=== PATIENT | female | born 1965 | race Caucasian/White ===

== ENCOUNTER 2020-09-20 11:44 | Emergency (ER) | payer SELFPAY ==
[~2020-09-20] VITALS: Ht 177.8 cm; Wt 100.4 kg
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
[2020-09-20] MEDS ORDERED: methylPREDNISolone 125 MG (Solu-MEDROL) VIAL IVP ONE (12:45)
[2020-09-20] MEDS ORDERED: PRED10TA22 PO (13:19)
[2020-09-20 13:20] VITALS: BP 126/67
== END 2020-09-20 13:20 | disposition home or self-care (01) ==
LOC: ER FS 11:47
DX: M06.9 Rheumatoid arthritis, unspecified (principal); E11.9 Type 2 diabetes mellitus without complications

== ENCOUNTER → 2021-08-19 | Outpatient (CLI) | payer MEDICARE ==
[~2021-08-19] MED LIST: PRED10TA22 PO
--- NOTE | 2021-08-19 14:53 | Diagnostic Imaging Report ---
INDICATION: CHRONIC PAIN IN RIGHT KNEE; RHEUMATOID ARTHRITIS FLARE COMPARISON: None. FINDINGS: 3 views of the right knee joint demonstrate no acute fracture or dislocation. No focal osseous lesions are seen. No significant joint effusion is seen. The surrounding soft tissue structures are unremarkable. There are no radiopaque foreign bodies. IMPRESSION: 1. No acute fractures or dislocations of the right knee joint. Dictated by: Dictated on workstation # [id number]
== END ==
LOC: RAD FS 14:33
PROVIDERS: ATTEND Nurse Practitioner Family
DX: M06.9 Rheumatoid arthritis, unspecified (principal)
CPT/HCPCS: 73562

== ENCOUNTER 2021-10-05 15:27 | Emergency (ER) | payer MEDICARE ==
[~2021-10-05] VITALS: Ht 177.8 cm; Wt 97.9 kg
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
[2021-10-05] MEDS ORDERED: CATHETER FLUSH 10 ML SYR IV PRN (16:15)
[2021-10-05] MEDS ORDERED: NS 100 ML (IVPB) BAG IV ONE (16:15)
[2021-10-05] MEDS ORDERED: HOLD METFORMIN - RECEIVED CONTRAST 20 ML VIAL IV SCH (16:15)
[2021-10-05] MEDS ORDERED: IOHEXOL 350 MG/ML 100 ML (OMNIPAQUE 350) VIAL IV ONE (16:15)
[2021-10-05 16:16] LABS: BASOPHILS # (AUTO) 0.1 10^3/uL (0.0-0.1); BASOPHILS % (AUTO) 0 % (0-10); EOSINOPHILS # (AUTO) 0.1 10^3/uL (0.0-0.3); EOSINOPHILS % (AUTO) 1 % (0-10); HEMATOCRIT 41 % (35-52); HEMOGLOBIN 13.8 g/dL (11.5-16.0); LYMPHOCYTES # (AUTO) 1.3 10^3/uL (1.0-4.0); LYMPHOCYTES % (AUTO) 9 % (12-44); MEAN CORPUSCULAR HEMOGLOBIN 30 pg (25-34); MEAN CORPUSCULAR HGB CONC 34 g/dL (32-36); MEAN CORPUSCULAR VOLUME 90 fL (80-99); MONOCYTES # (AUTO) 0.5 10^3/uL (0.0-1.0); MONOCYTES % (AUTO) 3 % (0-12); NEUTROPHILS # (AUTO) 12.9 10^3/uL (1.8-7.8); NEUTROPHILS % (AUTO) 87 % (42-75); PLATELET COUNT 165 10^3/uL (130-400); WHITE BLOOD COUNT 14.9 10^3/uL (4.3-11.0)
--- NOTE | 2021-10-05 16:42 | Diagnostic Imaging Report ---
INDICATION: Dizziness, shortness of breath, and abdominal pain. EXAMINATION: Chest from 10/05/2021. FINDINGS: Single-view chest. There may be mild atelectasis at the left lung base, much of this is likely technical, however the remaining lungs are clear. No pneumothorax. No effusions. Heart and pulmonary vasculature are normal. IMPRESSION: 1. Minimal left base atelectasis, otherwise negative chest. Dictated by: Dictated on workstation # [id number]
[2021-10-05 16:50] LABS: BILIRUBIN,URINE NEGATIVE (NEGATIVE); CLARITY,URINE CLOUDY; COLOR,URINE YELLOW; GLUCOSE, URINE (UA) NEGATIVE (NEGATIVE); KETONES,URINE NEGATIVE (NEGATIVE); LEUKOCYTE ESTERASE ,URINE 1+ (NEGATIVE); NITRITE,URINE NEGATIVE (NEGATIVE); PH,URINE 6.5 (5-9); PROTEIN,URINE 1+ (NEGATIVE)
[2021-10-05] MEDS ORDERED: morphine INJ 10 MG/ML 1ML (SYR OR VIAL) IVP STA ×2 (16:54→18:13)
[2021-10-05] MEDS ORDERED: NS IV 1000 ML 1,000 ML IV SCH ×2 (17:00→18:15)
[2021-10-05 17:02] LABS: ALANINE AMINOTRANSFERASE 21 U/L (0-55); ALKALINE PHOSPHATASE 140 U/L (40-136); BILIRUBIN,TOTAL 0.3 MG/DL (0.1-1.0); BUN/CREATININE RATIO 15; CALCIUM 9.3 MG/DL (8.5-10.1); CARBON DIOXIDE 25 MMOL/L (21-32); CHLORIDE 99 MMOL/L (98-107); CREATININE SERUM 0.74 MG/DL (0.60-1.30); GFR ESTIMATED 95; GLUCOSE 152 MG/DL (70-105); MAGNESIUM 1.6 MG/DL (1.6-2.4); POTASSIUM 4.2 MMOL/L (3.6-5.0); SODIUM 135 MMOL/L (135-145)
[2021-10-05 17:03] LABS: ALBUMIN 4.2 GM/DL (3.2-4.5); LIPASE 17 U/L (8-78); TOTAL PROTEIN 7.1 GM/DL (6.4-8.2)
--- NOTE | 2021-10-05 17:11 | Diagnostic Imaging Report ---
PROCEDURE: CT abdomen and pelvis with contrast. TECHNIQUE: Multiple contiguous axial images were obtained through the abdomen and pelvis after administration of intravenous contrast. Auto Exposure Controls were utilized during the CT exam to meet ALARA standards for radiation dose reduction. All CT scans use one or more of the following dose optimizing techniques: automated exposure control, MA and/or KvP adjustment based on patient size and exam type or iterative reconstruction. INDICATION: Abdominal pain and weakness. COMPARISON: No relevant comparison available. FINDINGS: The lung bases demonstrate no findings of pneumonia or edema. There is mild dependent atelectasis within the lower lobes. There is no pleural or pericardial effusion. The liver demonstrates no evidence of a focal intrahepatic abnormality. The patient is status post cholecystectomy. There is no abnormal biliary prominence. The pancreas is normal. The spleen is normal in size. There is no adrenal mass. The right kidney is nonobstructed and unremarkable. The left kidney demonstrates abnormal left perinephric fat stranding as well as some hypoenhancement. There is stranding demonstrated along the course of the left ureter. There is no radiodense stone evident within the ureter or within the bladder. The findings may reflect a recently passed stone or may be reflective of a urinary tract infection and pyelonephritis. The stomach is nondistended. There are no findings of small or large bowel dilation. There is no evidence of bowel obstruction. The appendix is normal. There are no findings of free air, free fluid, or abscess. There are no pathologically enlarged abdominal or pelvic lymph nodes. There are atherosclerotic calcifications within a normal-caliber aorta. There are multilevel degenerative changes present within the lumbar spine. There is an anterolisthesis of L4 on L5 and L5 on S1. There are vacuum discs at each level. There is no acute osseous abnormality. IMPRESSION: 1. Abnormal left perinephric fat stranding and stranding along the left ureter. There is no significant hydronephrosis. There is urothelial enhancement and hypoenhancement of the left kidney relative to the right. Features may reflect recently passed stone or urinary tract infection and pyelonephritis. 2. The right kidney is unremarkable. 3. No bowel obstruction or appendicitis. 4. No free air, free fluid, or abscess. 5. Prior cholecystectomy without abnormal biliary dilatation. 6. Lumbar degenerative disc disease and facet arthropathy. Dictated by: Dictated on workstation # [id number]
[2021-10-05 17:31] LABS: RBC,URINE 0-2 /HPF
[2021-10-05 17:32] LABS: BACTERIA,URINE LARGE /HPF; SQUAMOUS EPITHELIAL CELL,UR >50 /HPF; WBC,URINE >100 /HPF
[2021-10-05 17:36] LABS: AMPHETAMINE SCREEN, URINE NEGATIVE (NEGATIVE); BARBITURATE SCREEN URINE NEGATIVE (NEGATIVE); BENZODIAZEPINES SCREEN URINE NEGATIVE (NEGATIVE); CANNABINOID SCREEN, URINE POSITIVE (NEGATIVE); COCAINE SCREEN URINE NEGATIVE (NEGATIVE); METHADONE STAT NEGATIVE (NEGATIVE); OPIATE SCREEN URINE NEGATIVE (NEGATIVE); OXYCODONE STAT POSITIVE (NEGATIVE); PROPOXYPHENE STAT NEGATIVE (NEGATIVE); TRICYCLIC ANTIDEPRESSANTS SCRE NEGATIVE (NEGATIVE)
[2021-10-05 17:44] LABS: BAND NEUTROPHILS 16 %; BASOPHILS % (MANUAL) 0 %; EOSINOPHILS % (MANUAL) 0 %; LYMPHOCYTES % (MANUAL) 8 %; MONOCYTES % (MANUAL) 3 %; NEUTROPHILS % (MANUAL) 72 %
[2021-10-05 17:45] LABS: ATYPICAL LYMPHOCYTES 1 %; PLATELET CLUMPS SLIGHT
[2021-10-05 17:46] LABS: ANISOCYTOSIS SLIGHT; PLATELET ESTIMATE NORMAL
[2021-10-05] MEDS ORDERED: cefTRIAXone 1 GM PRE-MIX 50 ML IV ONE (18:00)
[2021-10-05] MEDS ORDERED: CEFP100T2 PO (18:30)
[2021-10-05 18:46] VITALS: BP 127/97
[2021-10-05 20:35] LABS: AMMONIA 28 UMOL/L (11-32)
== END 2021-10-05 19:40 | disposition home or self-care (01) ==
LOC: EDUNIT# 15:27 → ER FS 15:28
DX: N10 Acute pyelonephritis (principal); N20.0 Calculus of kidney; E11.9 Type 2 diabetes mellitus without complications; Z20.822 Contact with and (suspected) exposure to COVID-19; Z79.4 Long term (current) use of insulin
CPT/HCPCS: 36415; 71045; 74177; 80053; 80306; 81000; 82140; 83605; 83690; 83735; 84484; 85007; 85027; 87088; 87636; 93005; 99284; G0480; 80320; 87077; 87186; Q9967

== ENCOUNTER 2021-10-16 09:43 | Emergency (ER) | payer MEDICARE ==
[~2021-10-16] VITALS: Ht 177.8 cm; Wt 95.1 kg
[~2021-10-16 09:43] MED LIST changes: +CEFP100T2 PO
[2021-10-16] MEDS ORDERED: NS IV 1000 ML 1,000 ML IV STA ×2 (10:08→11:46)
[2021-10-16] MEDS ORDERED: morphine INJ 10 MG/ML 1ML (SYR OR VIAL) IVP STA (10:08)
[2021-10-16] MEDS ORDERED: ONDANSETRON 4 MG/2 ML (SDV) Z0FRAN IVP STA (10:08)
--- NOTE | 2021-10-16 10:10 | ED General ---
General Chief Complaint: Abdominal/GI Problems Stated Complaint: N/V; WEAKNESS Source of Information: Patient, Old Records, Spouse History of Present Illness Date Seen by Provider: Oct 16, 2021 Time Seen by Provider: 09:46 Initial Comments 56-year-old female presenting with recurrent diarrhea with nausea and vomiting. This is been associated with abdominal pain as well. She has been dealing with this for 2 to 3 weeks and was evaluated October 05 for the same complaint. She has been seen in the clinic as well for these complaints and had stool studies done that were reportedly negative. When she was seen in October 05 she was told that she had pyelonephritis and a possible kidney stone that had recently passed. She had felt like she was getting a little bit better but yesterday she had pain with urination again and nausea, vomiting, diarrhea to the point that she was not able to keep anything down. She was not able to take her regular chronic pain medications. She was feeling dizzy and lightheaded especially with standing or changing positions. She states that the diarrhea has just been watery. She has had chills. 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 She has previously seen Dr. Hoyt for her liver. He works out of [facility] in [facility]. They were unsure this morning if she was dealing with kidney stone, continued urine/kidney infection, complication from GOFF or what was causing her symptoms to be worse. However, since she is unable to keep down her medications in addition to eating or drinking she came to be seen and evaluated. Timing/Duration: Getting Worse (over the last 2-3 weeks) Severity: Severe Modifying Factors: worse with Eating Associated Systoms: No Chest Pain, No Cough, No Diaphoresis; Fever/Chills (s ubjective); No Headaches; Malaise, Nausea/Vomiting; No Rash, No Seizure, No Shortness of Air, No Syncope; Weakness Allergies and Home Medications Allergies Coded Allergies: Sulfa (Sulfonamide Antibiotics) (Verified Allergy, Unknown, 10/16/21) adalimumab (Verified Allergy, Unknown, 09/20/20) etanercept (Unverified Adverse Reaction, Unknown, 09/20/20) methotrexate (Unverified Adverse Reaction, Unknown, 09/20/20) Patient Home Medication List Home Medication List Reviewed: Yes Cefpodoxime Proxetil (Cefpodoxime Proxetil) 100 Mg Tablet, 100 MG PO BID Prescribed by: SANDEEP MARSH MD on 10/05/21 1830 Prednisone (Prednisone) 10 Mg Tab.ds.pk, 10 MG PO DAILY Prescribed by: VIOLA SHAH on 09/20/20 1319 Promethazine HCl (Promethazine Suppository) 25 Mg Supp.rect, 25 MG RC Q6H PRN for NAUSEA/VOMITING Prescribed by: VIOLA SHAH on 10/16/21 1334 Review of Systems Review of Systems Constitutional: see HPI EENTM: no symptoms reported Respiratory: no symptoms reported Cardiovascular: no symptoms reported Gastrointestinal: see HPI, abdominal pain (diffuse pain but feels it is worse in RUQ), diarrhea, nausea, vomiting Genitourinary: decreased output, dysuria : No Musculoskeletal: back pain (abdominal pain radiates to back) Skin: No rash Psychiatric/Neurological: Tingling (fingers bilaterally) Hematologic/Lymphatic: Denies Blood Clots Past Ppeipng-Rdrqvp-Pxaqjc Hx Patient Social History Tobacco Use?: Yes Tobacco type used: Cigarettes Smoking Status: Current Everyday Smoker Smokeless Tobacco Frequency: Never a User Use of E-Cig and/or Vaping Natan: Never a User Substance use?: No Alcohol Use?: No Pt feels they are or have been: No Immunizations Up To Date Influenza Vaccine Up-to-Date: Yes; Up-to-Date Past Medical History Surgery/Hospitalization HX: RA, 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 oz. kg; 30.00 BMI Method: General Appearance: Mild Distress (appears to not feel well) Eyes: Bilateral Eye PERRL, Bilateral Eye EOMI HEENT: Pharynx Normal; No Moist Mucous Membranes (slightly dry mucous membranes) Neck: Full Range of Motion, Normal Inspection, Non Tender, Supple Respiratory: Chest Non Tender, Lungs Clear, Normal Breath Sounds, No Accessory Muscle Use, No Respiratory Distress Cardiovascular: Regular Rate, Rhythm, No Murmur, Normal Peripheral Pulses Gastrointestinal: Normal Bowel Sounds, No Pulsatile Mass, Soft; No Distended; Guarding; No Rebound; Tenderness (diffuse tenderness with palpation, especially over suprapubic area over the bladder and epigastric/RUQ area) Rectal: Deferred Back: CVA Tenderness (L), CVA Tenderness (R) (right greater than left) Extremity: Normal Capillary Refill, Normal Inspection, No Pedal Edema Neurologic/Psychiatric: Alert, Oriented x3, electrical appliance mechanic II-XII Norm as Tested Skin: Normal Color, Warm/Dry Focused Exam Lactate Level 10/16/21 10:00: Lactic Acid Level 2.04*H Lactic Acid Level Laboratory Tests Test 10/16/21 10:00 Lactic Acid Level 2.04 MMOL/L (0.50-2.00) *H Progress/Results/Core Measures Suspected Sepsis SIRS Temperature: Pulse: Respiratory Rate: Laboratory Tests 10/16/21 10:00: White Blood Count 9.9 Blood Pressure / Mean: 10/16/21 10:00: Lactic Acid Level 2.04*H Laboratory Tests 10/16/21 10:00: Creatinine 0.57L, Platelet Count 242, Total Bilirubin 0.4 Results/Orders Lab Results Laboratory Tests Test 10/16/21 09:51 10/16/21 10:00 Range/Units Urine Color YELLOW Urine Clarity CLEAR Urine pH 6.0 5-9 Urine Specific [place] 1.010 L 1.016-1.022 Urine Protein NEGATIVE NEGATIVE Urine Glucose (UA) NEGATIVE NEGATIVE Urine Ketones NEGATIVE NEGATIVE Urine Nitrite NEGATIVE NEGATIVE Urine Bilirubin NEGATIVE NEGATIVE Urine Urobilinogen 0.2 < = 1.0 MG/DL Urine Leukocyte Esterase NEGATIVE NEGATIVE Urine RBC (Auto) TRACE-I H NEGATIVE Urine RBC 0-2 /HPF Urine WBC NONE /HPF Urine Squamous Epithelial Cells 5-10 /HPF Urine Crystals NONE /LPF Urine Bacteria TRACE /HPF Urine Casts NONE /LPF Urine Mucus NEGATIVE /LPF Urine Yeast FEW H /HPF Urine Culture Indicated NO White Blood Count 9.9 4.3-11.0 10^3/uL Red Blood Count 4.86 3.80-5.11 10^6/uL Hemoglobin 14.8 11.5-16.0 g/dL Hematocrit 43 35-52 % Mean Corpuscular Volume 89 80-99 fL Mean Corpuscular Hemoglobin 31 25-34 pg Mean Corpuscular Hemoglobin Concent 34 32-36 g/dL Red Cell Distribution Width 12.9 10.0-14.5 % Platelet Count 242 130-400 10^3/uL Mean Platelet Volume 9.8 9.0-12.2 fL Immature Granulocyte % (Auto) 0 % Neutrophils (%) (Auto) 64 42-75 % Lymphocytes (%) (Auto) 30 12-44 % Monocytes (%) (Auto) 4 0-12 % Eosinophils (%) (Auto) 2 0-10 % Basophils (%) (Auto) 1 0-10 % Neutrophils # (Auto) 6.3 1.8-7.8 10^3/uL Lymphocytes # (Auto) 3.0 1.0-4.0 10^3/uL Monocytes # (Auto) 0.4 0.0-1.0 10^3/uL Eosinophils # (Auto) 0.2 0.0-0.3 10^3/uL Basophils # (Auto) 0.1 0.0-0.1 10^3/uL Immature Granulocyte # (Auto) 0.0 0.0-0.1 10^3/uL Sodium Level 140 135-145 MMOL/L Potassium Level 3.3 L 3.6-5.0 MMOL/L Chloride Level 105 98-107 MMOL/L Carbon Dioxide Level 21 21-32 MMOL/L Anion Gap 14 5-14 MMOL/L Blood Urea Nitrogen 9 7-18 MG/DL Creatinine 0.57 L 0.60-1.30 MG/DL Estimat Glomerular Filtration Rate 107 BUN/Creatinine Ratio 16 Glucose Level 177 H 70-105 MG/DL Lactic Acid Level 2.04 *H 0.50-2.00 MMOL/L Calcium Level 8.9 8.5-10.1 MG/DL Corrected Calcium 8.8 8.5-10.1 MG/DL Total Bilirubin 0.4 0.1-1.0 MG/DL Aspartate Amino Transf (AST/SGOT) 11 5-34 U/L Alanine Aminotransferase (ALT/SGPT) 14 0-55 U/L Alkaline Phosphatase 137 H 40-136 U/L C-Reactive Protein 0.94 H <0.50 MG/DL Total Protein 7.1 6.4-8.2 GM/DL Albumin 4.1 3.2-4.5 GM/DL Lipase 14 8-78 U/L My Orders Orders - VIOLA SHAH MD Cbc With Automated Diff (10/16/21 10:06) Comprehensive Metabolic Panel (10/16/21 10:06) Blood Culture (10/16/21 10:06) Ua Culture If Indicated (10/16/21 10:06) Ed Iv/Invasive Line Start (10/16/21 10:06) Crp Fs (10/16/21 10:06) Lactic Acid Analyzer (10/16/21 10:06) Ct Abdomen/Pelvis W (10/16/21 10:06) Ns Iv 1000 Ml (Sodium Chloride 0.9%) (10/16/21 10:08) Ondansetron Injection (Zofran Injectio (10/16/21 10:08) Morphine Injection (Morphine Injection (10/16/21 10:08) Lipase (10/16/21 10:09) Iohexol Injection (Omnipaque 350 Mg/Ml 1 (10/16/21 10:30) Received Contrast (Hold Metformin- Contr (10/16/21 10:30) Ns (Ivpb) (Sodium Chloride 0.9% Ivpb Bag (10/16/21 10:30) Ns Iv 1000 Ml (Sodium Chloride 0.9%) (10/16/21 11:46) Pantoprazole Injection (Protonix Injecti (10/16/21 11:46) Vital Signs/I&O 10/16/21 10/16/21 10/16/21 09:45 11:00 13:45 Temp 36.0 36.4 Pulse 73 64 62 Resp 18 16 12 B/P (MAP) 140/77 (98) 122/56 128/58 Pulse Ox 98 96 98 O2 Delivery Room Air Room Air Room Air Capillary Refill : Progress Note #1: Progress Note Obtain lab and urinalysis. Repeat CT scan to see if there is been any change since she was still having severe pain with palpation for the suprapubic and right upper quadrant area. Try IV fluids normal saline 1 L for hydration, Zofran 4 mg IV for nausea, morphine 5 mg IV for pain. Since she has not been able to keep down her extended release oxycodone she may require additional pain medication. Differential diagnosis includes pyelonephritis, sepsis, exacerbation of GOFF, colitis, diverticulitis Progress Note #2: Progress Note Labs appear stable and no acute significant abnormality to account for her symptoms. Repeat CT scan compared to Oct 05 shows resolved issue with kidney and ureter and no acute process other than liquid stool in colon to go with her diarrhea. Pt was feeling better and had no vomiting here in the ED. Reassured about results. Will repeat a liter of fluid for additional hydration and try p.o. challenge. Provided she is tolerating oral intake we will plan on discharge to home. We will anticipate sending with Phenergan suppositories if she is tolerating oral intake that when she has an option neurologist to [facility]. Progress Note #3: Progress Note After the second liter of normal saline finished infusing patient had tolerated oral intake without nausea or vomiting. She states she felt like she was stable enough to go home. Will send with the Phenergan suppository prescription to the pharmacy. Encouraged to try fluids and advance diet as tolerated. Check with her GI doctor Monday to see if they needed to follow-up with her. Diagnostic Imaging Diagonstic Imaging: CT Plain Films/CT/US/NM/MRI: abdomen, pelvis Comments [facility], [place] NAME: CORY MONTES [facility] REC#: [id number] PT STATUS: REG ER : 1965 PHYSICIAN: VIOLA SHAH MD ADMIT DATE: 10/16/21/ER FS Signed Date of Exam:10/16/21 CT ABDOMEN/PELVIS W EXAMINATION: CT abdomen and pelvis with intravenous contrast. TECHNIQUE: Multiple contiguous axial images were obtained through the abdomen and pelvis after the uneventful administration of intravenous contrast. All CT scans use one or more of the following dose optimizing techniques: automated exposure control, MA and/or KvP adjustment based on patient size and exam type or iterative reconstruction. HISTORY: Diffuse abdominal pain. Radiates to the back. COMPARISON: 10/05/2021. FINDINGS: The heart is unremarkable. The included lung bases are clear. The liver, spleen, pancreas, adrenal glands, and kidneys have a normal appearance. The gallbladder is surgically absent. There is no pathologically enlarged mesenteric or retroperitoneal adenopathy. The bowel loops are nondilated. The appendix is visualized in the right lower quadrant and has a normal appearance. Liquid stool is seen in the colon. There is no free fluid or free air. No acute osseous abnormalities. There is calcified aortic atherosclerotic plaque without aneurysm. Ureters and bladder are grossly normal. There is no free air, loculated collection, or adenopathy in the pelvis. IMPRESSION: 1. Liquid stool in the colon, suggestive of diarrhea limits. No bowel obstruction, free fluid, or free air. Normal appendix. Dictated by: Dictated on workstation # [id number] Dict: 10/16/21 1049 Trans: 10/16/21 1058 BANNER [id number] Interpreted by: MAYA LUNA DO Electronically signed by: MAYA LUNA DO 10/16/21 1058 Reviewed: Reviewed by Me Departure Impression Primary Impression: Nausea vomiting and diarrhea Additional Impression: Diffuse abdominal pain Disposition: 01 HOME, SELF-CARE Condition: Improved Departure-Patient Inst. Decision time for Depature: 13:34 Referrals: JOSIE BAKER APRN (PCP) Primary Care Physician [facility] (Family) Primary Care Physician Patient Instructions: Nausea and Vomiting, Adult ED, Diarrhea, Adult ED, Abdominal Pain, Adult ED Add. Discharge Instructions: Try to stay well-hydrated and drink plenty of fluids. You could try using the Phenergan suppositories if the dissolving Zofran's are not helping. Call Dr. Hoyt for follow-up from a GI standpoint and see if your liver may be contributing to your symptoms. He may have other suggestions to help manage your recurrent nausea, vomiting, diarrhea. All discharge instructions reviewed with patient and/or family. Voiced understanding. Scripts Promethazine HCl (Promethazine Suppository) 25 Mg Supp.rect 25 MG RC Q6H PRN for NAUSEA/VOMITING for 5 Days, #20 SUPP.RECT 0 Refills Prov: VIOLA SHAH MD 10/16/21 VIOLA SHAH MD Oct 16, 2021 10:10
[2021-10-16 10:15] LABS: BASOPHILS # (AUTO) 0.1 10^3/uL (0.0-0.1); BASOPHILS % (AUTO) 1 % (0-10); EOSINOPHILS # (AUTO) 0.2 10^3/uL (0.0-0.3); EOSINOPHILS % (AUTO) 2 % (0-10); HEMATOCRIT 43 % (35-52); HEMOGLOBIN 14.8 g/dL (11.5-16.0); LYMPHOCYTES % (AUTO) 30 % (12-44); MEAN CORPUSCULAR HEMOGLOBIN 31 pg (25-34); MEAN CORPUSCULAR HGB CONC 34 g/dL (32-36); MEAN CORPUSCULAR VOLUME 89 fL (80-99); MEAN PLATELET VOLUME 9.8 fL (9.0-12.2); MONOCYTES # (AUTO) 0.4 10^3/uL (0.0-1.0); MONOCYTES % (AUTO) 4 % (0-12); NEUTROPHILS # (AUTO) 6.3 10^3/uL (1.8-7.8); NEUTROPHILS % (AUTO) 64 % (42-75); PLATELET COUNT 242 10^3/uL (130-400); WHITE BLOOD COUNT 9.9 10^3/uL (4.3-11.0)
[2021-10-16 10:16] LABS: BILIRUBIN,URINE NEGATIVE (NEGATIVE); CLARITY,URINE CLEAR; COLOR,URINE YELLOW; GLUCOSE, URINE (UA) NEGATIVE (NEGATIVE); KETONES,URINE NEGATIVE (NEGATIVE); LEUKOCYTE ESTERASE ,URINE NEGATIVE (NEGATIVE); NITRITE,URINE NEGATIVE (NEGATIVE); PROTEIN,URINE NEGATIVE (NEGATIVE)
[2021-10-16 10:23] LABS: BACTERIA,URINE TRACE /HPF; RBC,URINE 0-2 /HPF; YEAST,URINE FEW /HPF
[2021-10-16] MEDS ORDERED: HOLD METFORMIN - RECEIVED CONTRAST 20 ML VIAL IV SCH (10:30)
[2021-10-16] MEDS ORDERED: IOHEXOL 350 MG/ML 100 ML (OMNIPAQUE 350) VIAL IV NR (10:30)
[2021-10-16] MEDS ORDERED: NS 100 ML (IVPB) BAG IV NR (10:30)
[2021-10-16 10:36] LABS: ALBUMIN 4.1 GM/DL (3.2-4.5); BILIRUBIN,TOTAL 0.4 MG/DL (0.1-1.0); CALCIUM 8.9 MG/DL (8.5-10.1); CREATININE SERUM 0.57 MG/DL (0.60-1.30); POTASSIUM 3.3 MMOL/L (3.6-5.0); TOTAL PROTEIN 7.1 GM/DL (6.4-8.2)
--- NOTE | 2021-10-16 10:57 | Diagnostic Imaging Report ---
EXAMINATION: CT abdomen and pelvis with intravenous contrast. TECHNIQUE: Multiple contiguous axial images were obtained through the abdomen and pelvis after the uneventful administration of intravenous contrast. All CT scans use one or more of the following dose optimizing techniques: automated exposure control, MA and/or KvP adjustment based on patient size and exam type or iterative reconstruction. HISTORY: Diffuse abdominal pain. Radiates to the back. COMPARISON: 10/05/2021. FINDINGS: The heart is unremarkable. The included lung bases are clear. The liver, spleen, pancreas, adrenal glands, and kidneys have a normal appearance. The gallbladder is surgically absent. There is no pathologically enlarged mesenteric or retroperitoneal adenopathy. The bowel loops are nondilated. The appendix is visualized in the right lower quadrant and has a normal appearance. Liquid stool is seen in the colon. There is no free fluid or free air. No acute osseous abnormalities. There is calcified aortic atherosclerotic plaque without aneurysm. Ureters and bladder are grossly normal. There is no free air, loculated collection, or adenopathy in the pelvis. IMPRESSION: 1. Liquid stool in the colon, suggestive of diarrhea limits. No bowel obstruction, free fluid, or free air. Normal appendix. Dictated by: Dictated on workstation # [id number]
[2021-10-16] MEDS ORDERED: PANTOPRAZOLE 40 MG (PROTONIX) VIAL IV STA (11:46)
[2021-10-16] MEDS ORDERED: PROM25SU44 RC (13:34)
[2021-10-16 13:45] VITALS: BP 128/58
== END 2021-10-16 13:45 | disposition home or self-care (01) ==
LOC: EDUNIT# 09:43 → ER FS 09:44
DX: R11.2 Nausea with vomiting, unspecified (principal); R19.7 Diarrhea, unspecified; R10.84 Generalized abdominal pain; E11.9 Type 2 diabetes mellitus without complications; F17.210 Nicotine dependence, cigarettes, uncomplicated; Z79.4 Long term (current) use of insulin
CPT/HCPCS: 36415; 74177; 80053; 81000; 83605; 83690; 85025; 86141; 87040; Q9967

== ENCOUNTER 2021-11-30 08:10 | Inpatient (IN) | payer MEDICARE ==
[~2021-11-30] VITALS: Ht 177.8 cm; Wt 94.8 kg
[2021-11-30] VITALS (11 sets, daily range): BP systolic 116–141; BP diastolic 55–66
[~2021-11-30 08:10] MED LIST changes: +PROM25SU44 RC
--- NOTE | 2021-11-30 08:40 | ED Abdominal Pain ---
General Chief Complaint: Abdominal/GI Problems Stated Complaint: ABD PAIN Nursing Triage Note: Patient reports she began having epigastric/generalized abdominal pain on Monday. She reports nausea, but no vomiting. She reports she had a loose bowel movement this morning. She states she saw her PCP, Dr. Lombardi, in [place] yesterday and he suspected she may have a small bowel obstruction or ileus, but was unable to do a CT scan yesterday to confirm. Patient states the pain is constant and rates her pain at 8/10. Source of Information: Patient Exam Limitations: No Limitations History of Present Illness Date Seen by Provider: Nov 30, 2021 Time Seen by Provider: 08:30 Initial Comments 56-year-old female presents to the emergency department today for abdominal pain. It is diffuse cramping with radiation to her back diffusely as well. Symptoms started on Monday that been persistent, worsening since that time. No obvious aggravating or alleviating factors. She had nausea without any vomiting. Notably she has had a history of loose stools for the past 3 to 4 weeks. This has been extensively worked up with stool studies, labs. She saw a new doctor in [place] yesterday who wanted to do a CT scan but was unable to do so yesterday. Reportedly the fear was for possible small bowel obstruction. She denies any blood in her stools, recent travel. She describes fevers to 100 when taken orally at home. No changes in urination. No vaginal symptoms. She has had her gallbladder removed. She does have a history of rheumatoid arthritis. Last PO intake was 1900 last night, a few crackers. Allergies and Home Medications Allergies Coded Allergies: Sulfa (Sulfonamide Antibiotics) (Verified Allergy, Unknown, 10/16/21) adalimumab (Verified Allergy, Unknown, 09/20/20) etanercept (Unverified Adverse Reaction, Unknown, 09/20/20) methotrexate (Unverified Adverse Reaction, Unknown, 09/20/20) Patient Home Medication List Home Medication List Reviewed: Yes Cefpodoxime Proxetil (Cefpodoxime Proxetil) 100 Mg Tablet, 100 MG PO BID Prescribed by: SANDEEP MARSH MD on 10/05/21 183 Prednisone (Prednisone) 10 Mg Tab.ds.pk, 10 MG PO DAILY Prescribed by: VIOLA SHAH on 09/20/20 1319 Promethazine HCl (Promethazine Suppository) 25 Mg Supp.rect, 25 MG RC Q6H PRN for NAUSEA/VOMITING Prescribed by: VIOLA SHAH on 10/16/21 1334 Review of Systems Review of Systems Constitutional: no symptoms reported EENTM: No Symptoms Reported Respiratory: No Symptoms Reported Cardiovascular: No Symptoms Reported Gastrointestinal: Abdominal Pain, Diarrhea, Nausea Genitourinary: No Symptoms Reported Musculoskeletal: no symptoms reported Skin: no symptoms reported Psychiatric/Neurological: No Symptoms Reported Endocrine: No Symptoms Reported Hematologic/Lymphatic: No Symptoms Reported Past Rshnyjm-Fgurgo-Vckvkg Hx Patient Social History Tobacco Use?: Yes Tobacco type used: Cigarettes Smoking Status: Current Everyday Smoker Substance use?: No Alcohol Use?: No Pt feels they are or have been: No Immunizations Up To Date First/Initial COVID19 Vaccinat: 05/19/20 Second COVID19 Vaccination [place]: 06/16/20 Third COVID19 Vaccination Date: 05/19/20 Past Medical History Surgery/Hospitalization HX: RA, 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, DM II Musculoskeletal: Yes Rheumatoid Arthritis Endocrine: Yes Diabetes, Insulin dep Family Medical History Reviewed Nursing Family Hx No Pertinent Family Hx Physical Exam Vital Signs Vital Signs - First Documented 11/30/21 08:15 Temp 37.0 Pulse 96 Resp 24 B/P (MAP) 133/76 (95) Pulse Ox 96 O2 Delivery Room Air Capillary Refill : Less Than 3 Seconds Height/Weight/BMI Height: '" Weight: lbs. oz. kg; 30.00 BMI Method: General Appearance: WD/WN, no apparent distress HEENT: normal ENT inspection, pharynx normal Neck: non-tender, full range of motion, supple, normal inspection Respiratory: chest non-tender, lungs clear, normal breath sounds, no respiratory distress, no accessory muscle use Cardiovascular: regular rate, rhythm, no edema, no gallop, no JVD, no murmur Gastrointestinal: normal bowel sounds, soft, no organomegaly, tenderness (Diffuse abdominal tenderness with voluntary guarding. No rebound tenderness. No mass organomegaly. No skin changes.) Extremities: normal range of motion, non-tender, normal inspection, no pedal edema, no calf tenderness, normal capillary refill Neurologic/Psychiatric: alert, oriented x 3 Skin: normal color, warm/dry Lymphatic: no adenopathy Focused Exam Lactate Level 11/30/21 08:40: Lactic Acid Level 0.92 Lactic Acid Level Laboratory Tests Test 11/30/21 08:40 Lactic Acid Level 0.92 MMOL/L (0.50-2.00) Progress/Results/Core Measures Results/Orders Lab Results Laboratory Tests Test 11/30/21 08:15 11/30/21 08:40 Range/Units Urine Color YELLOW Urine Clarity TURBID Urine pH 6.0 5-9 Urine Specific [place] 1.010 L 1.016-1.022 Urine Protein NEGATIVE NEGATIVE Urine Glucose (UA) NEGATIVE NEGATIVE Urine Ketones NEGATIVE NEGATIVE Urine Nitrite NEGATIVE NEGATIVE Urine Bilirubin NEGATIVE NEGATIVE Urine Urobilinogen 1.0 < = 1.0 MG/DL Urine Leukocyte Esterase 2+ H NEGATIVE Urine RBC (Auto) 1+ H NEGATIVE Urine RBC 2-5 H /HPF Urine WBC >100 H /HPF Urine Squamous Epithelial Cells 5-10 /HPF Urine Crystals NONE /LPF Urine Bacteria LARGE H /HPF Urine Casts NONE /LPF Urine Mucus NEGATIVE /LPF Urine Culture Indicated YES White Blood Count 23.1 H 4.3-11.0 10^3/uL Red Blood Count 4.38 3.80-5.11 10^6/uL Hemoglobin 13.0 11.5-16.0 g/dL Hematocrit 38 35-52 % Mean Corpuscular Volume 87 80-99 fL Mean Corpuscular Hemoglobin 30 25-34 pg Mean Corpuscular Hemoglobin Concent 34 32-36 g/dL Red Cell Distribution Width 13.2 10.0-14.5 % Platelet Count 256 130-400 10^3/uL Mean Platelet Volume 9.6 9.0-12.2 fL Immature Granulocyte % (Auto) 0 % Neutrophils (%) (Auto) 89 H 42-75 % Lymphocytes (%) (Auto) 6 L 12-44 % Monocytes (%) (Auto) 5 0-12 % Eosinophils (%) (Auto) 0 0-10 % Basophils (%) (Auto) 0 0-10 % Neutrophils # (Auto) 20.4 H 1.8-7.8 10^3/uL Lymphocytes # (Auto) 1.5 1.0-4.0 10^3/uL Monocytes # (Auto) 1.0 0.0-1.0 10^3/uL Eosinophils # (Auto) 0.0 0.0-0.3 10^3/uL Basophils # (Auto) 0.1 0.0-0.1 10^3/uL Immature Granulocyte # (Auto) 0.1 0.0-0.1 10^3/uL Neutrophils % (Manual) 81 % Lymphocytes % (Manual) 4 % Monocytes % (Manual) 6 % Band Neutrophils 9 % Platelet Estimate NORMAL Blood Morphology Comment NORMAL Sodium Level 133 L 135-145 MMOL/L Potassium Level 3.6 3.6-5.0 MMOL/L Chloride Level 97 L 98-107 MMOL/L Carbon Dioxide Level 22 21-32 MMOL/L Anion Gap 14 5-14 MMOL/L Blood Urea Nitrogen 6 L 7-18 MG/DL Creatinine 0.58 L 0.60-1.30 MG/DL Estimat Glomerular Filtration Rate 106 BUN/Creatinine Ratio 10 Glucose Level 201 H 70-105 MG/DL Lactic Acid Level 0.92 0.50-2.00 MMOL/L Calcium Level 9.1 8.5-10.1 MG/DL Corrected Calcium 9.3 8.5-10.1 MG/DL Total Bilirubin 0.7 0.1-1.0 MG/DL Aspartate Amino Transf (AST/SGOT) 13 5-34 U/L Alanine Aminotransferase (ALT/SGPT) 13 0-55 U/L Alkaline Phosphatase 146 H 40-136 U/L Total Protein 7.2 6.4-8.2 GM/DL Albumin 3.8 3.2-4.5 GM/DL Lipase 10 8-78 U/L My Orders Orders - SHELIA GRUBBS DO Cbc With Automated Diff (11/30/21 08:31) Comprehensive Metabolic Panel (11/30/21 08:31) Lipase (11/30/21 08:31) Ua Culture If Indicated (11/30/21 08:31) Ns Iv 1000 Ml (Sodium Chloride 0.9%) (11/30/21 08:45) Fentanyl Inj (Sublimaze Injection) (11/30/21 08:45) Ondansetron Injection (Zofran Injectio (11/30/21 08:45) Ct Abd/Pelv W (Appendicitis) (11/30/21 08:31) Lactic Acid Analyzer (11/30/21 08:31) Iohexol Injection (Omnipaque 350 Mg/Ml 1 (11/30/21 08:45) Received Contrast (Hold Metformin- Contr (11/30/21 08:45) Ns (Ivpb) (Sodium Chloride 0.9% Ivpb Bag (11/30/21 08:45) Urine Culture (11/30/21 08:15) Manual Differential (11/30/21 08:40) Piperacillin Sodium/Tazobactam (Zosyn Vi (11/30/21 10:15) Vancomycin Injection (Vancomycin Injecti (11/30/21 10:15) Morphine Injection (Morphine Injection (11/30/21 10:16) Ed Admission (Communication) (11/30/21 10:21) Medications Given in ED Current Medications Medications Dose Ordered Sig/[place] Route Start Time Stop Time Status Last Admin Dose Admin Fentanyl Citrate 50 mcg ONCE ONCE IVP 11/30/21 08:45 11/30/21 08:46 DC 11/30/21 08:52 50 MCG Iohexol 100 ml ONCE ONCE IV 11/30/21 08:45 11/30/21 08:46 DC 11/30/21 09:41 100 ML Ondansetron HCl 8 mg ONCE ONCE IVP 11/30/21 08:45 11/30/21 08:46 DC 11/30/21 08:52 8 MG Piperacillin Sod/ Tazobactam Sod 4.5 gm/Sodium Chloride 100 ml @ 200 mls/hr ONCE ONCE IV 11/30/21 10:15 11/30/21 10:44 11/30/21 10:20 200 MLS/HR Sodium Chloride 100 ml ONCE ONCE IV 11/30/21 08:45 11/30/21 08:46 DC 11/30/21 09:41 100 ML Vital Signs/I&O 11/30/21 08:15 Temp 37.0 Pulse 96 Resp 24 B/P (MAP) 133/76 (95) Pulse Ox 96 O2 Delivery Room Air Blood Pressure Mean: 95 Critical Care Note Critical Care Start Time: 08:30 Stop Time: 10:15 Total Time (minutes) 105 Departure Communication (Admissions) Spoke to Dr Mead about CT findings. Requests transfer to [place]. Abx ordered. Pending transport. Impression Primary Impression: Bowel perforation Additional Impression: Ileitis, terminal Qualified Codes: K50.018 - Crohn's disease of small intestine with other complication Disposition: 30 STILL A PATIENT Condition: Stable Admissions Decision to Admit/Date: Nov 30, 2021 Time/Decision to Admit Time: 10:07 Transfer Transfer Reason: Exceeds level of care Time Spoke to Accepting Phy: 10:07 Transfer Progress Notes Spoke to Dr Mead. Requests transfer to [place] for perforated bowel. Radiologist called, thinks she has termianl ileitis of unknown origin. Poss appy vs IBD. No obvious volvulus per radiology. Departure-Patient Inst. Referrals: MAX LOMBARDI DO (PCP) Primary Care Physician [facility] (Family) Primary Care Physician SHELIA GRUBBS DO Nov 30, 2021 08:40
[2021-11-30] MEDS ORDERED: ONDANSETRON 4 MG/2 ML (SDV) Z0FRAN IVP ONE (08:45)
[2021-11-30] MEDS ORDERED: NS 100 ML (IVPB) BAG IV ONE (08:45)
[2021-11-30] MEDS ORDERED: NS IV 1000 ML 1,000 ML IV SCH (08:45)
[2021-11-30] MEDS ORDERED: HOLD METFORMIN - RECEIVED CONTRAST 20 ML VIAL IV SCH (08:45)
[2021-11-30] MEDS ORDERED: IOHEXOL 350 MG/ML 100 ML (OMNIPAQUE 350) VIAL IV ONE (08:45)
[2021-11-30] MEDS ORDERED: fentaNYL INJ 100 MCG/2 ML AMP IVP ONE ×2 (08:45→19:00)
[2021-11-30 08:51] LABS: BASOPHILS # (AUTO) 0.1 10^3/uL (0.0-0.1); BASOPHILS % (AUTO) 0 % (0-10); EOSINOPHILS % (AUTO) 0 % (0-10); HEMATOCRIT 38 % (35-52); LYMPHOCYTES # (AUTO) 1.5 10^3/uL (1.0-4.0); LYMPHOCYTES % (AUTO) 6 % (12-44); MEAN CORPUSCULAR HEMOGLOBIN 30 pg (25-34); MEAN CORPUSCULAR HGB CONC 34 g/dL (32-36); MEAN CORPUSCULAR VOLUME 87 fL (80-99); MEAN PLATELET VOLUME 9.6 fL (9.0-12.2); MONOCYTES % (AUTO) 5 % (0-12); NEUTROPHILS # (AUTO) 20.4 10^3/uL (1.8-7.8); NEUTROPHILS % (AUTO) 89 % (42-75); PLATELET COUNT 256 10^3/uL (130-400); WHITE BLOOD COUNT 23.1 10^3/uL (4.3-11.0)
[2021-11-30 08:52] LABS: BILIRUBIN,URINE NEGATIVE (NEGATIVE); CLARITY,URINE TURBID; COLOR,URINE YELLOW; GLUCOSE, URINE (UA) NEGATIVE (NEGATIVE); KETONES,URINE NEGATIVE (NEGATIVE); LEUKOCYTE ESTERASE ,URINE 2+ (NEGATIVE); NITRITE,URINE NEGATIVE (NEGATIVE); PROTEIN,URINE NEGATIVE (NEGATIVE)
[2021-11-30 09:08] LABS: BACTERIA,URINE LARGE /HPF; WBC,URINE >100 /HPF
[2021-11-30 09:17] LABS: ALBUMIN 3.8 GM/DL (3.2-4.5); BILIRUBIN,TOTAL 0.7 MG/DL (0.1-1.0); CALCIUM 9.1 MG/DL (8.5-10.1); CREATININE SERUM 0.58 MG/DL (0.60-1.30); POTASSIUM 3.6 MMOL/L (3.6-5.0); TOTAL PROTEIN 7.2 GM/DL (6.4-8.2)
[2021-11-30 09:30] LABS: BAND NEUTROPHILS 9 %; LYMPHOCYTES % (MANUAL) 4 %; MONOCYTES % (MANUAL) 6 %; NEUTROPHILS % (MANUAL) 81 %; PLATELET ESTIMATE NORMAL; RBC MORPH NORMAL
[2021-11-30] MEDS ORDERED: VANCOMYCIN INJECTION 1,000 MG in NS (IVPB) 250 ML IV ONE (10:15)
[2021-11-30] MEDS ORDERED: PIPERACILLIN SODIUM/TAZOBACTAM 4.5 GM in NS (IVPB) 100 ML IV ONE (10:15)
[2021-11-30] MEDS ORDERED: morphine INJ 10 MG/ML 1ML (SYR OR VIAL) IVP STA (10:16)
--- NOTE | 2021-11-30 10:23 | Diagnostic Imaging Report ---
PROCEDURE: CT abdomen and pelvis with contrast, rule out appendicitis. TECHNIQUE: Multiple contiguous axial images were obtained through the abdomen and pelvis after the administration of intravenous contrast. All CT scans use one or more of the following dose optimizing techniques: automated exposure control, MA and/or KvP adjustment based on patient size and exam type or iterative reconstruction. INDICATION: Diffuse abdominal pain. COMPARISON: 10/16/2021. FINDINGS: The included portions of the lung bases show mild dependent atelectasis. CT ABDOMEN: Since the previous exam, there has been interval development of profound stranding of the deep pelvic fat. This is epicentered around the terminal ileum, appendix, and sigmoid colon. There is a small amount of free fluid and free air also seen within the pelvis. No loculated air-fluid collection is identified to suggest abscess. There is associated thickening of the terminal ileum and sigmoid colon:. There is also abnormal appearance to the appendix. The tip of the appendix extends to the collection of free air within the central pelvis. There is no pneumatosis or portal venous gas. Multiple mildly enlarged retroperitoneal lymph nodes are also identified, particularly in the left upper abdominal quadrant inferior to the left renal pedicle. Note is also made of multiple striated nephrograms of the left kidney. This does raise suspicion for pyelonephritis. The right kidney has a normal CT appearance. Right adrenal lesion measures 2.2 x 1.6 cm and is otherwise incompletely characterized on this post contrast nephrographic phase only CT. The left adrenal gland, spleen, pancreas, and liver have a normal CT appearance. No abnormal mesenteric adenopathy is seen. There is mild scattered calcified aortic and arterial atherosclerosis. Osseous structures show no acute abnormalities. CT PELVIS: The urinary bladder is unopacified. No calculi are seen within the urinary bladder. Again, there is a small amount of free fluid or free air with moderate stranding of the deep pelvic fat. No additional loculated fluid collection is seen. No abnormal inguinal adenopathy is identified. Osseous structures show no acute abnormalities. IMPRESSION: 1. Moderate abnormal stranding in the deep pelvic fat with a small amount of free fluid and free air within the lower pelvis. There is associated abnormal thickening of the terminal ileum, sigmoid colon, and appendix. Etiology is indeterminate but favors ruptured appendicitis. Terminal ileitis, as can be seen with inflammatory bowel disease such as Crohn's, is also a consideration. Surgical consultation is advised. 2. No loculated air-fluid collection to suggest abscess. 3. Findings consistent with left-sided pyelonephritis. 4. Indeterminate right adrenal lesion. Further characterization with dedicated adrenal protocol CT could be performed when clinically appropriate. 5. Multiple mildly prominent left upper abdominal quadrant retroperitoneal lymph nodes, possibly reactive. 6. Results were called to Dr. Tatum by Dr. Renteria at 1010 hours on 11/30/2021. Dictated by: Dictated on workstation # [id number]
--- NOTE | 2021-11-30 14:20 | Consultation - Surgery ---
ERICKA WALLACE 11/30/21 1420: History of Present Illness History of Present Illness Patient Consulted On(dana/time) 11/30/21 14:20 Date Seen by Provider: Nov 30, 2021 Time Seen by Provider: 14:30 History of Present Illness 56yo female presents with a chief complaint of abdominal pain. She claimed she initially felt an increased feeling of bloating and a crampy pain rated 5/10 that "felt like a band over her lower abdomen". However she has been having increased feeling of bloating and diarrhea over the past 6 months so she did not think much of it. She woke up on Monday morning and had epigastric pain rated 10/10 that radiated straight into her back. The pain was severe enough that she could barely walk. The pain has been aggravated by movement, and whenever she moves she has to hold both hands on her abdomen to try and stop her abdomen from moving as much. Laying down with her knees bent/in the position has provided some alleviation of the pain but not much. She went to her doctor in [place] where they scheduled a CT for today (11/30) in [place]. When the patient woke up today she had a BM that she described as watery and after she had this BM her pain changed and was most prominent in her lower abdomen bilaterally and radiated into her pelvis and feels like she is "sitting on a softball'. She did not think she was able to make it until her appointment so she then went to the [place] ED. Since the onset of her pain she has had constant nausea which is still present. Her pain is currently a 9/10 and is located diffusely in her lower abdomen. Says she does not have pain above her umbilicus. She last ate yesterday at 7pm, had 4 saltine crackers. Allergies and Home Medications Allergies Coded Allergies: Sulfa (Sulfonamide Antibiotics) (Verified Allergy, Unknown, 10/16/21) adalimumab (Verified Allergy, Unknown, 09/20/20) etanercept (Unverified Adverse Reaction, Unknown, 09/20/20) methotrexate (Unverified Adverse Reaction, Unknown, 09/20/20) Patient Home Medication List Ascorbate Calcium (Vitamin C) 500 Mg Tablet, 500 MG PO DAILY, (Reported) Entered as Reported by: SHARIF BRAMBILA on 11/30/21 8543 Last Action: Reviewed Atorvastatin Calcium (Atorvastatin Calcium) 20 Mg Tablet, 20 MG PO HS, (Reported) Entered as Reported by: SHARIF BRAMBILA on 11/30/211522 Last Action: Reviewed Cholecalciferol (Vitamin D3) (Vitamin D3) 25 Mcg (1000 Unit) Tablet, 25 MCG PO DAILY, (Reported) Entered as Reported by: SHARIF BRAMBILA on 11/30/211522 Last Action: Reviewed Cyclobenzaprine HCl (Cyclobenzaprine HCl) 5 Mg Tablet, 5 MG PO TID PRN for MUSCLE SPASMS, (Reported) Entered as Reported by: SHARIF BRAMBILA on 11/30/211522 Last Action: Reviewed Dulaglutide (Trulicity) 0.75 Mg/0.5 Ml Pen.injctr, 0.75 MG SQ SUN, (Reported) Entered as Reported by: SHARIF BRAMBILA on 11/30/211522 Last Action: Reviewed Furosemide (Furosemide) 40 Mg Tablet, 40 MG PO DAILY, (Reported) Entered as Reported by: SHARIF BRAMBILA on 11/30/211522 Last Action: Reviewed Gabapentin (Gabapentin) 800 Mg Tablet, 800 MG PO BID, (Reported) Entered as Reported by: SHARIF BRAMBILA on 11/30/211522 Last Action: Reviewed Gabapentin (Gabapentin) 800 Mg Tablet, 800 MG PO 1200 PRN for PAIN-BREAKTHROUGH, (Reported) Entered as Reported by: SHARIF BRAMBILA on 11/30/211522 Last Action: Reviewed Levothyroxine Sodium (Levothyroxine Sodium) 150 Mcg Tablet, 150 MCG PO DAILY, (Reported) Entered as Reported by: SHARIF BRAMBILA on 11/30/211522 Last Action: Reviewed Lisinopril (Lisinopril) 10 Mg Tablet, 10 MG PO DAILY, (Reported) Entered as Reported by: SHARIF BRAMBILA on 11/30/211522 Last Action: Reviewed Omeprazole (Omeprazole) 40 Mg Capsule.dr, 40 MG PO HS, (Reported) Entered as Reported by: SHARIF BRAMBILA on 11/30/211522 Last Action: Reviewed Oxycodone HCl (Oxycodone HCl) 10 Mg Tablet, 10 MG PO BID, (Reported) Entered as Reported by: SHARIF BRAMBILA on 11/30/211522 Last Action: Reviewed Potassium Chloride (Potassium Chloride) 20 Meq Tablet.er, 20 MEQ PO DAILY, (Reported) Entered as Reported by: SHARIF BRAMBILA on 11/30/211522 Last Action: Reviewed Sertraline HCl (Sertraline HCl) 100 Mg Tablet, 100 MG PO HS, (Reported) Entered as Reported by: SHARIF BRAMBILA on 11/30/211522 Last Action: Reviewed Trazodone HCl (Trazodone HCl) 100 Mg Tablet, 100 MG PO HS, (Reported) Entered as Reported by: SHARIF BRAMBILA on 11/30/211522 Last Action: Reviewed Turmeric Root Extract (Turmeric) 500 Mg Tablet, 500 MG PO DAILY, (Reported) Entered as Reported by: SHARIF BRAMBILA on 11/30/211522 Last Action: Reviewed Vitamin E Mixed (Vitamin E) 100 Unit Tablet, 2 UNIT PO DAILY, (Reported) Entered as Reported by: SHARIF BRAMBILA on 11/30/211522 Last Action: Reviewed Discontinued Medications Cefpodoxime Proxetil (Cefpodoxime Proxetil) 100 Mg Tablet, 100 MG PO BID Discontinued Reason: No Longer Taking Prescribed by: SANDEEP MARSH MD on 10/05/21 1830 Last Action: Discontinued Prednisone (Prednisone) 10 Mg Tab.ds.pk, 10 MG PO DAILY Discontinued Reason: No Longer Taking Prescribed by: VIOLA SHAH on 09/20/20 1319 Last Action: Discontinued Promethazine HCl (Promethazine Suppository) 25 Mg Supp.rect, 25 MG RC Q6H PRN for NAUSEA/VOMITING Discontinued Reason: No Longer Taking Prescribed by: VIOLA SHAH on 10/16/21 1334 Last Action: Discontinued Past [id number]-[id number] Hx Patient Social History Smoking Status: Current Everyday Smoker Alcohol Use?: No Have you traveled recently?: No Surgeries History of Surgeries: Yes Surgeries: Section (x2), Eye Surgery (cataracts x2), Gallbladder, Hysterectomy, Orthopedic Respiratory History of Respiratory Disorde: No Cardiovascular History of Cardiac Disorders: No Neurological History of Neurological Disord: No Genitourinary History of Genitourinary Disor: Yes (UTI one month ago, same time as she passed kidney stone) Genitourinary Disorders: Kidney Stones (one month ago) Gastrointestinal History of Gastrointestinal Di: Yes (GOFF) Gastrointestinal Disorders: Gastroesophageal Reflux Musculoskeletal History of Musculoskeletal Dis: Yes Musculoskeletal Disorders: Rheumatoid Arthritis Endocrine History of Endocrine Disorders: Yes Endocrine Disorders: Diabetes, Insulin dep, Hypothyroidsim HEENT History of HEENT Disorders: Yes HEENT Disorders: Cataract Cancer History of Cancer: Yes Cancer: Cervical (had hysterectomy because she had cancerous cells in cervix) Psychosocial History of Psychiatric Problem: Yes Behavioral Health Disorders: Anxiety, Depression Integumentary History of Skin or Integumenta: No Family Medical History Significant Family History: Cancer (mom had breast cancer diagnosed in her mid- 50s. Still living), Diabetes (mom), Hypertension (mom), Stroke (mom), Other Conditions/Hx (father is but reportedly had stomach, colon, prostate, and skin cancer after being exposed to "Agent orange" in [place]) Review of Systems-General Constitutional: chills, diaphoresis (over the weekend, not currently), fever, weight loss (25lbs in last two months, unintentional) EENTM: No blurred vision, No double vision, No vision loss, No throat pain Respiratory: No cough; short of breath (not currently, but when pain was 10/10 she could not take full breaths because pain was too severe) Cardiovascular: No chest pain, No palpitations Gastrointestinal: abdominal pain (diffuse, most severe inferior to umbilicus); No constipation; diarrhea; No dysphagia, No hematemesis; loss of appetite (has not had appetite since abdominal pain began); No melena; nausea; No vomiting Genitourinary: dysuria (not currently, she had this last and monday, was relieved after she thought she passed kidney stone); No hematuria, No incontinence; pain (she thinks she passed a kidney stone on Monday before abdominal pain began) Musculoskeletal: No back pain, No joint pain, No muscle pain Skin: No dryness, No pruritus, No rash Psychiatric/Neurological: Headache, Weakness Physical Exam-General Problems Physical Exam Vital Signs Vital Signs - First Documented 11/30/21 11/30/21 08:15 12:15 Temp 37.0 Pulse 96 Resp 24 B/P (MAP) 133/76 (95) Pulse Ox 96 O2 Delivery Room Air O2 Flow Rate 2.00 Capillary Refill : Less Than 3 Seconds General Appearance: WD/WN, moderate distress HEENT: PERRL/EOMI; No scleral icterus (R), No scleral icterus (L) Neck: non-tender, supple Respiratory: lungs clear, normal breath sounds, no respiratory distress, no accessory muscle use Cardiovascular: regular rate, rhythm, no murmur Peripheral Pulses: 2+ Dorsalis Pedis (R), 2+ Left Dors-Pedis (L), 2+ Radial Pulses (R), 2+ Radial Pulses (L) Gastrointestinal: guarding (guarding on deep palpation to all quadrants), tenderness (diffusely tender to light palpation), hernia (umbilical) Back: CVA tenderness (R), CVA tenderness (L), vertebral tenderness (pain on thoracic vertebrae on palpation) Extremities: non-tender, no calf tenderness Neurologic/Psychiatric: alert, oriented x 3 Skin: normal color, warm/dry Lymphatic: no adenopathy (cervical) Data Review Labs Laboratory Tests 11/30/21 08:15: Urine Color YELLOW, Urine Clarity TURBID, Urine pH 6.0, Urine Specific [place] 1.010L, Urine Protein NEGATIVE, Urine Glucose (UA) NEGATIVE, Urine Ketones NEGATIVE, Urine Nitrite NEGATIVE, Urine Bilirubin NEGATIVE, Urine Urobilinogen 1.0, Urine Leukocyte Esterase 2+H, Urine RBC (Auto) 1+H, Urine RBC 2-5H, Urine WBC >100H, Urine Squamous Epithelial Cells 5-10, Urine Crystals NONE, Urine Bacteria LARGEH, Urine Casts NONE, Urine Mucus NEGATIVE, Urine Culture Indicated YES 11/30/21 08:40: White Blood Count 23.1H, Red Blood Count 4.38, Hemoglobin 13.0, Hematocrit 38, Mean Corpuscular Volume 87, Mean Corpuscular Hemoglobin 30, Mean Corpuscular Hemoglobin Concent 34, Red Cell Distribution Width 13.2, Platelet Count 256, Mean Platelet Volume 9.6, Immature Granulocyte % (Auto) 0, Neutrophils (%) (Auto) 89H, Lymphocytes (%) (Auto) 6L, Monocytes (%) (Auto) 5, Eosinophils (%) (Auto) 0, Basophils (%) (Auto) 0, Neutrophils # (Auto) 20.4H, Lymphocytes # (Auto) 1.5, Monocytes # (Auto) 1.0, Eosinophils # (Auto) 0.0, Basophils # (Auto) 0.1, Immature Granulocyte # (Auto) 0.1, Neutrophils % (Manual) 81, Lymphocytes % (Manual) 4, Monocytes % (Manual) 6, Band Neutrophils 9, Platelet Estimate NORMAL, Blood Morphology Comment NORMAL, Sodium Level 133L, Potassium Level 3.6, Chloride Level 97L, Carbon Dioxide Level 22, Anion Gap 14, Blood Urea Nitrogen 6L, Creatinine 0.58L, Estimat Glomerular Filtration Rate 106, BUN/Creatinine Rat io 10, Glucose Level 201H, Lactic Acid Level 0.92, Calcium Level 9.1, Corrected Calcium 9.3, Total Bilirubin 0.7, Aspartate Amino Transf (AST/SGOT) 13, Alanine Aminotransferase (ALT/SGPT) 13, Alkaline Phosphatase 146H, Total Protein 7.2, Albumin 3.8, Lipase 10 Assessment/Plan Assessment/Plan Assessment/Plan Possible appendicitis vs. terminal ileitis vs. sigmoid volvulus Abdominal Pain Nausea Leukocytosis UTI Left Pyelonephritis Hyperglycemia Patient has been started on zosyn and vancomycin. Zofran ordered PRN for nausea. Morphine and fentanyl ordered for pain control. Patient will likely undergo diagnostic laparotomy with potential appendectomy. CORBY ESCOBAR DO 11/30/21 1640: History of Present Illness History of Present Illness Time Seen by Provider: 16:04 History of Present Illness Surgery asked to admit regarding bowel perforation. HPI per ED: Patient reports she began having epigastric/generalized abdominal pain on Monday. She reports nausea, but no vomiting. She reports she had a loose bowel movement this morning. She states she saw her PCP, Dr. Lombardi, in [place] yesterday and he suspected she may have a small bowel obstruction or ileus, but was unable to do a CT scan yesterday to confirm. Patient states the pain is constant and rates her pain at 8/10. 56-year-old female presents to the emergency department today for abdominal pain. It is diffuse cramping with radiation to her back diffusely as well. Symptoms started on Monday that been persistent, worsening since that time. No obvious aggravating or alleviating factors. She had nausea without any vomiting. Notably she has had a history of loose stools for the past 3 to 4 weeks. This has been extensively worked up with stool studies, labs. She saw a new doctor in [place] yesterday who wanted to do a CT scan but was unable to do so yesterday. Reportedly the fear was for possible small bowel obstruction. She denies any blood in her stools, recent travel. She describes fevers to 100 when taken orally at home. No changes in urination. No vaginal symptoms. She has had her gallbladder removed. She does have a history of rheumatoid arthritis. Last PO intake was 1900 last night, a few crackers. When I spoke to pt she just stated she wants this pain to end; has been going on since Monday. Allergies and Home Medications Allergies Coded Allergies: Sulfa (Sulfonamide Antibiotics) (Verified Allergy, Unknown, 10/16/21) adalimumab (Verified Allergy, Unknown, 09/20/20) etanercept (Unverified Adverse Reaction, Unknown, 09/20/20) methotrexate (Unverified Adverse Reaction, Unknown, 09/20/20) Patient Home Medication List Home Medication List Reviewed: Yes Ascorbate Calcium (Vitamin C) 500 Mg Tablet, 500 MG PO DAILY, (Reported) Entered as Reported by: SHARIF BRAMBILA on 11/30/211522 Last Action: Reviewed Atorvastatin Calcium (Atorvastatin Calcium) 20 Mg Tablet, 20 MG PO HS, (Reported) Entered as Reported by: SHARIF BRAMBILA on 11/30/211522 Last Action: Reviewed Cholecalciferol (Vitamin D3) (Vitamin D3) 25 Mcg (1000 Unit) Tablet, 25 MCG PO DAILY, (Reported) Entered as Reported by: SHARIF BRAMBILA on 11/30/211522 Last Action: Reviewed Cyclobenzaprine HCl (Cyclobenzaprine HCl) 5 Mg Tablet, 5 MG PO TID PRN for MUSCLE SPASMS, (Reported) Entered as Reported by: SHARIF BRAMBILA on 11/30/211522 Last Action: Reviewed Dulaglutide (Trulicity) 0.75 Mg/0.5 Ml Pen.injctr, 0.75 MG SQ SUN, (Reported) Entered as Reported by: SHARIF BRAMBILA on 11/30/211522 Last Action: Reviewed Furosemide (Furosemide) 40 Mg Tablet, 40 MG PO DAILY, (Reported) Entered as Reported by: SHARIF BRAMBILA on 11/30/211522 Last Action: Reviewed Gabapentin (Gabapentin) 800 Mg Tablet, 800 MG PO BID, (Reported) Entered as Reported by: SHARIF BRAMBILA on 11/30/211522 Last Action: Reviewed Gabapentin (Gabapentin) 800 Mg Tablet, 800 MG PO 1200 PRN for PAIN-BREAKTHROUGH, (Reported) Entered as Reported by: SHARIF BRAMBILA on 11/30/211522 Last Action: Reviewed Levothyroxine Sodium (Levothyroxine Sodium) 150 Mcg Tablet, 150 MCG PO DAILY, (Reported) Entered as Reported by: SHARIF BRAMBILA on 11/30/211522 Last Action: Reviewed Lisinopril (Lisinopril) 10 Mg Tablet, 10 MG PO DAILY, (Reported) Entered as Reported by: SHARIF BRAMBILA on 11/30/211522 Last Action: Reviewed Omeprazole (Omeprazole) 40 Mg Capsule.dr, 40 MG PO HS, (Reported) Entered as Reported by: SHARIF BRAMBILA on 11/30/211522 Last Action: Reviewed Oxycodone HCl (Oxycodone HCl) 10 Mg Tablet, 10 MG PO BID, (Reported) Entered as Reported by: SHARIF BRAMBILA on 11/30/211522 Last Action: Reviewed Potassium Chloride (Potassium Chloride) 20 Meq Tablet.er, 20 MEQ PO DAILY, (Reported) Entered as Reported by: SHARIF BRAMBILA on 11/30/211522 Last Action: Reviewed Sertraline HCl (Sertraline HCl) 100 Mg Tablet, 100 MG PO HS, (Reported) Entered as Reported by: SHARIF BRAMBILA on 11/30/211522 Last Action: Reviewed Trazodone HCl (Trazodone HCl) 100 Mg Tablet, 100 MG PO HS, (Reported) Entered as Reported by: SHARIF BRAMBILA on 11/30/211522 Last Action: Reviewed Turmeric Root Extract (Turmeric) 500 Mg Tablet, 500 MG PO DAILY, (Reported) Entered as Reported by: SHARIF BRAMBILA on 11/30/211522 Last Action: Reviewed Vitamin E Mixed (Vitamin E) 100 Unit Tablet, 2 UNIT PO DAILY, (Reported) Entered as Reported by: SHARIF BRAMBILA on 11/30/211522 Last Action: Reviewed Discontinued Medications Cefpodoxime Proxetil (Cefpodoxime Proxetil) 100 Mg Tablet, 100 MG PO BID Discontinued Reason: No Longer Taking Prescribed by: SANDEEP MARSH MD on 10/05/21 8790 Last Action: Discontinued Prednisone (Prednisone) 10 Mg Tab.ds.pk, 10 MG PO DAILY Discontinued Reason: No Longer Taking Prescribed by: VIOLA SHAH on 09/20/20 1319 Last Action: Discontinued Promethazine HCl (Promethazine Suppository) 25 Mg Supp.rect, 25 MG RC Q6H PRN for NAUSEA/VOMITING Discontinued Reason: No Longer Taking Prescribed by: VIOLA SHAH on 10/16/21 9534 Last Action: Discontinued Past [id number]-[id number]-Cliigw Hx Patient Social History Smoking Status: Current Everyday Smoker Alcohol Use?: No Surgeries History of Surgeries: Yes Surgeries: Section (x2), Eye Surgery (cataracts x2), Gallbladder, Hysterectomy, Orthopedic Respiratory History of Respiratory Disorde: No Cardiovascular History of Cardiac Disorders: No Neurological History of Neurological Disord: No Genitourinary History of Genitourinary Disor: Yes (UTI one month ago, same time as she passed kidney stone) Genitourinary Disorders: Kidney Stones (one month ago) Gastrointestinal History of Gastrointestinal Di: Yes (GOFF) Gastrointestinal Disorders: Gastroesophageal Reflux Musculoskeletal History of Musculoskeletal Dis: Yes Musculoskeletal Disorders: Rheumatoid Arthritis Endocrine History of Endocrine Disorders: Yes Endocrine Disorders: Diabetes, Insulin dep, Hypothyroidsim HEENT History of HEENT Disorders: Yes HEENT Disorders: Cataract Cancer History of Cancer: Yes Cancer: Cervical (had hysterectomy because she had cancerous cells in cervix) Psychosocial History of Psychiatric Problem: Yes Behavioral Health Disorders: Anxiety, Depression Integumentary History of Skin or Integumenta: No Family Medical History Significant Family History: Cancer (mom had breast cancer diagnosed in her mid- 50s. Still living), Diabetes (mom), Hypertension (mom), Stroke (mom), Other Conditions/Hx (father is but reportedly had stomach, colon, prostate, and skin cancer after being exposed to "Agent orange" in [place]) Review of Systems-General Constitutional: chills, diaphoresis (over the weekend, not currently), fever, weight loss (25lbs in last two months, unintentional) EENTM: No blurred vision, No double vision, No vision loss, No throat pain Respiratory: No cough; short of breath (not currently, but when pain was 10/10 she could not take full breaths because pain was too severe) Cardiovascular: No chest pain, No palpitations Gastrointestinal: abdominal pain (diffuse, most severe inferior to umbilicus); No constipation; diarrhea; No dysphagia, No hematemesis; loss of appetite (has not had appetite since abdominal pain began); No melena; nausea; No vomiting Genitourinary: dysuria (not currently, she had this last and monday, was relieved after she thought she passed kidney stone); No hematuria, No incontinence; pain (she thinks she passed a kidney stone on Monday before abdominal pain began) Musculoskeletal: No back pain, No joint pain, No muscle pain Skin: No dryness, No pruritus, No rash Psychiatric/Neurological: Anxiety, Depressed, Headache, Weakness Physical Exam-General Problems Physical Exam General Appearance: WD/WN, moderate distress, obese Eyes: Bilateral Eye PERRL, Bilateral Eye EOMI HEENT: pharynx normal; No scleral icterus (R), No scleral icterus (L) Neck: non-tender, supple Respiratory: lungs clear, normal breath sounds, no respiratory distress, no accessory muscle use Cardiovascular: regular rate, rhythm, no murmur Gastrointestinal: guarding (guarding on deep palpation to all quadrants - voluntary), tenderness (diffusely tender to light palpation), hernia (umbilical) Back: CVA tenderness (R), CVA tenderness (L), vertebral tenderness (pain on thoracic vertebrae on palpation) Extremities: non-tender, no calf tenderness Neurologic/Psychiatric: alert, oriented x 3 Skin: normal color, warm/dry Lymphatic: no adenopathy (neck, axilla or groin) Data Review Radiology Draft Date of Exam:11/30/21 CT ABD/PELV W (APPENDICITIS) PROCEDURE: CT abdomen and pelvis with contrast, rule out appendicitis. TECHNIQUE: Multiple contiguous axial images were obtained through the abdomen and pelvis after the administration of intravenous contrast. All CT scans use one or more of the following dose optimizing techniques: automated exposure control, MA and/or KvP adjustment based on patient size and exam type or iterative reconstruction. INDICATION: Diffuse abdominal pain. COMPARISON: 10/16/2021. FINDINGS: The included portions of the lung bases show mild dependent atelectasis. CT ABDOMEN: Since the previous exam, there has been interval development of profound stranding of the deep pelvic fat. This is epicentered around the terminal ileum, appendix, and sigmoid colon. There is a small amount of free fluid and free air also seen within the pelvis. No loculated air-fluid collection is identified to suggest abscess. There is associated thickening of the terminal ileum and sigmoid colon:. There is also abnormal appearance to the appendix. The tip of the appendix extends to the collection of free air within the central pelvis. There is no pneumatosis or portal venous gas. Multiple mildly enlarged retroperitoneal lymph nodes are also identified, particularly in the left upper abdominal quadrant inferior to the left renal pedicle. Note is also made of multiple striated nephrograms of the left kidney. This does raise suspicion for pyelonephritis. The right kidney has a normal CT appearance. Right adrenal lesion measures 2.2 x 1.6 cm and is otherwise incompletely characterized on this post contrast nephrographic phase only CT. The left adrenal gland, spleen, pancreas, and liver have a normal CT appearance. No abnormal mesenteric adenopathy is seen. There is mild scattered calcified aortic and arterial atherosclerosis. Osseous structures show no acute abnormalities. CT PELVIS: The urinary bladder is unopacified. No calculi are seen within the urinary bladder. Again, there is a small amount of free fluid or free air with moderate stranding of the deep pelvic fat. No additional loculated fluid collection is seen. No abnormal inguinal adenopathy is identified. Osseous structures show no acute abnormalities. IMPRESSION: 1. Moderate abnormal stranding in the deep pelvic fat with a small amount of free fluid and free air within the lower pelvis. There is associated abnormal thickening of the terminal ileum, sigmoid colon, and appendix. Etiology is indeterminate but favors ruptured appendicitis. Terminal ileitis, as can be seen with inflammatory bowel disease, is also a consideration. Surgical consultation is advised. 2. No loculated air-fluid collection to suggest abscess. 3. Findings consistent with left-sided pyelonephritis. 4. Indeterminate right adrenal lesion. Further characterization with dedicated adrenal protocol CT could be performed when clinically appropriate. 5. Multiple mildly prominent left upper abdominal quadrant retroperitoneal lymph nodes, possibly reactive. 6. Results were called to Dr. Tatum by Dr. Tinoco at 1010 hours on 11/30/2021. Dictated on workstation # [id number] Dict: 11/30/21 0957 Trans: 11/30/21 1021 [id number] Interpreted by: ZOË TINOCO MD Assessment/Plan Assessment/Plan Assessment/Plan Possible appendicitis vs. Bowel perforation r/o sigmoid volvulus - causing (Abdominal Pain, Nausea, Leukocytosis) UTI Left Pyelonephritis Hyperglycemia I reviewed the CT films myself, discussed the case with ED provider, am consulting Hospitalist and went over the films with radiologist. I at first thought this was a volvulous with perforation, radiology thought appendicitis; when we reviewed together we can't really see appendix and there is a lot of inflammation in the "looped" sigmoid colon. Patient has been given a dose zosyn and vancomycin. Zofran ordered PRN for nausea. Morphine ordered for pain control. I discussed plan with pt, her and daughter; she needs di agnostic laparoscopy with potential appendectomy, possible bowel resection and even possible colostomy. I told them that I stated on the consent "all other indicated procedures and they told me to "do whatever needs done to make her better". Plan is to go to the OR now; all questions answered to their satisfaction. Supervisory-Addendum Brief Verification & Attestation Participated in pt care: history, MDM, physical Personally performed: exam, history, MDM, supervision of care Care discussed with: Medical Student Procedures: n/a Verification and Attestation of Medical Student E/M Service A medical student performed and documented this service. I then reviewed and verified all information documented by the medical student and made modifications to such information, when appropriate. I personally performed a physical exam, medical decision making and then discussed any differences between the notes and made revisions as necessary to create one note. Corby Escobar , 11/30/21 , 16:40 ERICKA WALLACE Nov 30, 2021 14:20 CORBY ESCOBAR DO Nov 30, 2021 16:40
[2021-11-30] MEDS ORDERED: LACTATED RINGERS 1,000 ML IV PRN (14:30)
[2021-11-30] MEDS ORDERED: LISI10TA25 PO (15:23)
[2021-11-30] MEDS ORDERED: OMEP40CA6 PO (15:23)
[2021-11-30] MEDS ORDERED: TRAZ-227 PO (15:23)
[2021-11-30] MEDS ORDERED: ATOR20TA66 PO (15:23)
[2021-11-30] MEDS ORDERED: VITA100T8 PO (15:23)
[2021-11-30] MEDS ORDERED: GABA800T10 PO ×2 (15:23)
[2021-11-30] MEDS ORDERED: ASCO-262 PO (15:23)
[2021-11-30] MEDS ORDERED: LEVO150T6 PO (15:23)
[2021-11-30] MEDS ORDERED: FURO40TA4 PO (15:23)
[2021-11-30] MEDS ORDERED: DULA0.75 SQ (15:23)
[2021-11-30] MEDS ORDERED: POTA-51 PO (15:23)
[2021-11-30] MEDS ORDERED: OXYC10TA7 PO (15:23)
[2021-11-30] MEDS ORDERED: CHOL10004 PO (15:23)
[2021-11-30] MEDS ORDERED: CYCL5TAB PO (15:23)
[2021-11-30] MEDS ORDERED: SERT-414 PO (15:23)
[2021-11-30] MEDS ORDERED: TURM500T PO (15:23)
[2021-11-30] MEDS: LACTATED RINGERS 1,000 ML IV SCH ×3 (15:54→22:28)
[2021-11-30] MEDS: morphine INJ 4 MG/ML 1 ML (VIAL/SYRINGE) IVP PRN ×2 (15:54→21:18)
[2021-11-30] MEDS: ONDANSETRON 4 MG/2 ML (SDV) Z0FRAN IVP PRN (15:55)
[2021-11-30] MEDS ORDERED: LIDOCAINE/EPI 2% 1:200,00 (XYLOCAINE) 10 ML VIAL ONE (16:32)
[2021-11-30] MEDS ORDERED: fentaNYL INJ 100 MCG/2 ML AMP ONE ×3 (16:45→17:30)
[2021-11-30] MEDS ORDERED: LIDOCAINE PF 2% 5 ML (XYLOCAINE) VIAL ONE (16:45)
[2021-11-30] MEDS ORDERED: ROCURONIUM 10 MG/ML 5 ML SYRINGE IV ONE (16:45)
[2021-11-30] MEDS ORDERED: proPOfol 200 MG/20 ML (DIPRIVAN) VIAL IV ONE (16:45)
[2021-11-30] MEDS ORDERED: MIDAZOLAM 2 MG/2 ML (VERSED) VIAL ONE (16:46)
[2021-11-30] MEDS ORDERED: HYDROmorphone 2 MG/ML VIAL (DILAUDID) ONE (17:01)
[2021-11-30] MEDS ORDERED: ONDANSETRON 4 MG/2 ML (SDV) Z0FRAN ONE (17:01)
[2021-11-30] MEDS ORDERED: SEVOFLURANE (ULTANE) 15 ML INHAL SOLN ONE (18:20)
[2021-11-30] MEDS ORDERED: GLYCOPYRROLATE 0.2 MG/ML (ROBINUL) 2 ML VIAL ONE (18:32)
[2021-11-30] MEDS ORDERED: NEOSTIGMINE (BLOXIVERZ ) 1 MG/1ML 10 ML VIAL ONE (18:32)
[2021-11-30] MEDS: inSUlin ASPART (NovoLOG) 1 UNIT/0.01 ML (CHARGE PER UNIT) SC SCH (18:42)
[2021-11-30] MEDS: PIPERACILLIN SODIUM/TAZOBACTAM 4.5 GM in NS (IVPB) 100 ML IV SCH (18:42)
--- NOTE | 2021-11-30 18:48 | Anesthesia-General Post-Op ---
General Patient Condition Mental Status/LOC: Same as Preop Cardiovascular: Satisfactory Nausea/Vomiting: Absent Respiratory: Satisfactory Pain: Controlled Complications: Absent Post Op Complications Complications None Follow Up Care/Instructions Patient Instructions None needed. Anesthesia/Patient Condition Patient Condition Patient is doing well, no complaints, stable vital signs, no apparent adverse anesthesia problems. No complications reported per nursing. BECK PASCAL CRNA Nov 30, 2021 18:48
[2021-11-30] MEDS ORDERED: ONDANSETRON 4 MG/2 ML (SDV) Z0FRAN IVP PRN ×2 (19:00→19:15)
[2021-11-30] MEDS ORDERED: HYDROmorphone 2 MG/ML VIAL (DILAUDID) IV ONE (19:00)
--- NOTE | 2021-11-30 19:15 | Progress Note-Post Operative ---
Post-Operative Progess Note Surgeon (s)/Drug Discovery Informatics Specialist (s) Surgeon CORBY ESCOBAR DO Drug Discovery Informatics Specialist: Berhane Pre-Operative Diagnosis Perforated bowel, Abd abscess Post-Operative Diagnosis perforated appendix intra-abdominal abscess Procedure & Operative Findings Date of Procedure 11/30/21 Procedure Performed/Findings 1) Lap Appy 2) Drainage of abdominal abscess Anesthesia Type GET Estimated Blood Loss Estimated blood loss (mL): minimal Specimens/Packing Specimens Removed appendix CORBY ESCOBAR DO Nov 30, 2021 19:15
--- NOTE | 2021-11-30 23:43 | OPERATIVE REPORT ---
DATE OF SERVICE: 11/30/2021 PREOPERATIVE DIAGNOSES: Bowel perforation and abdominal abscess. POSTOPERATIVE DIAGNOSES: 1. Ruptured appendicitis. 2. Intraabdominal abscess. PROCEDURES: 1. Laparoscopic appendectomy. 2. Drainage of abscess. SURGEON: Dejon Mead DO MEDICAL ASSISTANT PRN: Jorge Last DO. ANESTHESIA: General endotracheal tube. SPECIMEN: Appendix. BLOOD LOSS: Minimal. FLUIDS: Per anesthesia. POSTOPERATIVE CONDITION: Stable. INDICATION FOR PROCEDURE: The patient is a 56-year-old female with severe abdominal pain, had free fluid, free air in the pelvis and also had almost like a volvulus, but were crossed over there was a lot of inflammation around the sigmoid colon, could not see the appendix on the CAT scan, concerned about possible sigmoid perforation, but could also been a ruptured appendicitis. FINDINGS: The patient had actually a very bad appendix. There was purulent fluid down in the pelvis. There was some fibrinous material and purulent tissue on the surrounding colon, but did not see any holes in any of the sigmoid colon, cecum or terminal ileum. PROCEDURE NOTE: After informed consent was obtained, the patient was brought to the operating room, placed on the operating table in supine position. She was sterilely prepped and draped in normal fashion. Local lidocaine was used to make an incision above the umbilicus. First infiltrated with local and made an incision with 11 blade, carried down through skin and subcutaneous tissue, then deepened down to subcutaneous tissue with Bovie electrocautery down to fascia. Fascia was incised with Bovie electrocautery and bluntly entered the abdomen, swept a finger around, placed a limited trocar port under direct visualization. Created pneumoperitoneum and then placed the camera noted adhesions in the midline, I elected to place a 5 mm port left lateral position with using VersaStep with a local lidocaine, 11 blade for stab incision and VersaStep system, all done under direct visualization, placed this and then we started using the LigaSure started taking down these adhesions, could not see any adhesions, right next to the supraumbilical port. So, attempted to place a port in the midline. Unable to get the port to go through, so placed another one in the left lower quadrant, again under direct visualization using the VersaStep system. Took all of the adhesions down. Once these adhesions were down, then noted bladder was completely full even though, the patient stated she had emptied it, so we had the nurse placed a Alexander. She was then placed in Trendelenburg. It was very firm in the pelvis, intestine, sigmoid colon, cecum, and small intestine was trapped on there. Carefully started pushing this intestine apart soft purulent tissue with fibrinous tissue, able to push this apart and then saw some pus suctioned this out then irrigated. I then continued to carefully break this up, able to finally lift the sigmoid colon back again found more inflammation and then started dissecting, found the tip of the appendix was very inflamed purplish. It was attached very closely to the small intestine, the terminal ileum and the cecum, carefully started taking this off, got into some more purulent fluid, entrapped between the bowel loops and then once this was freed up, using the LigaSure to come across some of the mesentery to free this up and then coming across the mesoappendix, clamping, coagulating and transecting in this fashion, freeing the appendix up, so it was just attached to the cecum, could see the cecum and the terminal ileum, both looked good. There was some fibrinous and purulent tissue on this intestine, but it did not look like there was a hole in either of these. Switched to 5 mm camera, inserted the Endo-DELFINO in, placed across the base of appendix. A 2.5 mm staple clamped and fired, thereby transecting the appendix, removed, placed a bag in the abdomen, placed the appendix in the bag, removed through the supraumbilical incision. Placed the port back into the abdomen, pulled the entire sigmoid colon out of the pelvis. It was very twisty, took a picture of this, again had some fibrinous and purulent tissue in here, but it did not look there was a hole from this area, dropped this back in. At this point, I then copiously irrigated with about 3 liters of warm normal saline, suctioned this out, then elected to place the drain through the left lower quadrant incision, brought out through here, sutured in place with 2-0 nylon, make sure it was down in the pelvis as well across the cecum, then placed the omentum over the top of this, looked like it laid in nicely, took a picture, taking all adhesions down previously with the LigaSure and at this point, the patient was placed supine and removed all ports under direct visualization, allowed pneumoperitoneum to escape. Closed the supraumbilical incision with 0 Vicryl [id number] suture. Copiously irrigated incisions then closed the two small 5 mm incisions with a single interrupted 4-0 undyed Monocryl subcuticular stitch. Closed the supraumbilical incision with 3 interrupted 4-0 undyed Monocryl subcuticular stitches. Again, the left lower quadrant incision had been closed with the nylon suture in the drain. Area was cleaned and dried, dressings placed. The patient tolerated the procedure. She was transferred to recovery room in stable condition. Sponge, instrument and needle count correct at the end of the case. Dr. Last assisted in this case helping to make incisions, close incisions, identify anatomy, hold anatomy out of the way. Job ID: [id number] DocumentID: [id number] Dictated Date: 11/30/2021 20:05:19 Dust Mop Maker Date: 11/30/2021 23:42:56 Dictated By: DO KAM DUGAN
[2021-12-01 00:04] VITALS: BP 106/62
[2021-12-01] MEDS: morphine INJ 4 MG/ML 1 ML (VIAL/SYRINGE) IVP PRN ×4 (00:16→09:37)
[2021-12-01] MEDS: inSUlin ASPART (NovoLOG) 1 UNIT/0.01 ML (CHARGE PER UNIT) SC SCH ×2 (00:18→05:38)
[2021-12-01] MEDS: PIPERACILLIN SODIUM/TAZOBACTAM 4.5 GM in NS (IVPB) 100 ML IV SCH ×2 (00:36→09:36)
[2021-12-01] MEDS: LACTATED RINGERS 1,000 ML IV SCH ×2 (03:35→09:37)
[2021-12-01 03:44] VITALS: BP 108/68
[2021-12-01] MEDS: ONDANSETRON 4 MG/2 ML (SDV) Z0FRAN IVP PRN (06:41)
[2021-12-01 07:33] VITALS: BP 108/69
[2021-12-01] MEDS ORDERED: PANTOPRAZOLE 40 MG (PROTONIX) VIAL IVP SCH (09:00)
--- NOTE | 2021-12-01 10:27 | Discharge Inst-Surgical ---
Discharge Inst-Surgical Depart Medication/Instructions New, Converted or Re-Newed RX: Other (Take home meds for pain) Patient Instructions Follow up Appt: Make appointment for 1 week. [phone] Instructions: No lifting greater than 20 pounds. No strenuous activity. May shower in 24 hours, no tub bath or soaking. Use incentive spirometer at home as directed. No Smoking Skin/Wound Care: May remove bandages in am. You need to leave the Dermabond on incision it will fall off on it's own. Symptoms to Report: Appetite Changes, Extremity Discoloration, Numbness/Tingling, Swelling Increased, Bleeding Excessive, Eyesight Changes, Pain Increased, Urine Color Change, Constipation(Persistent), Fever over 101 degree F, Pain/Pressure in chest, Urinating Difficulty, Cough Up/Vomit Blood, Heart Beat Irreg/Pounding, Pain/Pressure in jaw, Cramps in feet or legs, Lightheadedness, Pain/Pressure in shoulder, Diarrhea(Persistent), Memory Changes Suddenly, Questions/Concerns, Weight gain consecutive days, Dizziness/Fainting, Nausea/Vomiting, Shortness of Breath, Weight gain over 2 pounds If questions or concerns contact your physician Or seek help at emergency department. Activity Activity as Tolerated: Yes Activity Instructions: Avoid Stress to Incision Driving Instructions: No Driving/Refer to Dr. Monge Discharge Diet: No Restrictions Diet After 24 Hours: Clear Liquid if Nauseous If Any Problems/Questions/Issu: Contact Your Physician, Go to Emergency Room Skin/Wound Care Infection Signs and Symptoms: Increased Redness, Foul Odor of Wound, Increased Drainage, Skin Itchy or Has a Rash, Increased Swelling, Temperature Above 101 F Wound Care Comment: ADRIÁN drain teaching Bathing Instructions: Shower Stitches/[place]/Dermabond Dis: Dermabond Ice Pack: Ice On and Off Site CORBY ESCOBAR DO Dec 01, 2021 10:27
--- NOTE | 2021-12-01 10:31 | Progress Note - Surgery ---
Subjective Time Seen by a Provider: 09:52 Subjective/Events-last exam Pt seen and examined, states pain is controlled and she wants to go home. Feels much better than yesterday. Tolerating clears. Review of Systems Pulmonary: No Dyspnea, No Cough Cardiovascular: No: Chest Pain, Palpitations Gastrointestinal: Abdominal Pain; No: Nausea, Vomiting Focused Exam Lactate Level 11/30/21 08:40: Lactic Acid Level 0.92 Objective Exam Vital Signs Date Time Temp Pulse Resp B/P (MAP) Pulse Ox O2 Delivery O2 Flow Rate FiO2 12/01/21 07:33 35.5 65 18 108/69 (82) 92 Nasal Cannula 3.00 12/01/21 03:44 35.8 70 18 108/68 (81) 95 Nasal Cannula 3.00 12/01/21 00:04 36.3 75 20 106/62 (77) 90 Room Air 11/30/21 20:15 91 Nasal Cannula 3.00 11/30/21 19:53 37.4 86 18 123/58 (79) 91 Nasal Cannula 3.00 11/30/21 19:40 Nasal Cannula 3.00 11/30/21 19:40 36.1 20 139/66 (90) 92 Nasal Cannula 3.00 11/30/21 19:30 Nasal Cannula 3.00 11/30/21 19:30 20 140/66 (90) 92 Nasal Cannula 3.00 11/30/21 19:20 20 133/60 (84) 92 OxyMask 6.00 11/30/21 19:15 OxyMask 6.00 11/30/21 19:10 20 141/65 (90) 92 OxyMask 6.00 11/30/21 19:00 20 122/55 (77) 93 OxyMask 6.00 11/30/21 19:00 OxyMask 6.00 11/30/21 18:50 20 122/55 (77) 93 OxyMask 6.00 11/30/21 18:45 OxyMask 6.00 11/30/21 18:40 20 124/55 (78) 94 OxyMask 6.00 11/30/21 18:37 OxyMask 6.00 11/30/21 18:37 36.1 20 130/58 (82) 95 OxyMask 6.00 11/30/21 15:26 38.5 86 19 116/58 (77) 90 Room Air 11/30/21 14:08 37.9 88 18 116/56 (76) 98 Room Air 11/30/21 13:00 90 Room Air 11/30/21 12:15 86 20 121/54 94 Nasal Cannula 2.00 I & O 12/01/21 07:00 Intake Total 4450 ml Output Total 1210 ml Balance 3240 ml Capillary Refill : Less Than 3 SecondsLess Than 3 Seconds General Appearance: Mild Distress, Obese Respiratory: Lungs Clear, Normal Breath Sounds, No Accessory Muscle Use, No Respiratory Distress Cardiovascular: Regular Rate, Rhythm, No Murmur Peripheral Pulses: 2+ Dorsalis Pedis (R), 2+ Left Dors-Pedis (L), 2+ Radial Pulses (R), 2+ Radial Pulses (L) Gastrointestinal: soft, guarding (mild), tenderness (at incisions), other (incisions c/d/i, serosanguinous in ADRIÁN) Results Lab Laboratory Tests 11/30/21 19:50: Glucometer 209H 11/30/21 23:51: Glucometer 254H 12/01/21 05:35: Glucometer 238H Microbiology 11/30/21 Urine Culture - Preliminary, Resulted Escherichia coli Assessment/Plan Assessment/Plan Assessment/Plan S/P Lap appy D/C IV and D/C home, home with oral ABX CORBY ESCOBAR DO Dec 01, 2021 10:31
[2021-12-01] MEDS ORDERED: AMOX-355 PO (10:32)
[2021-12-01] MEDS ORDERED: METR-145 PO (10:32)
[2021-12-01] MEDS ORDERED: inSUlin ASPART (NovoLOG) 1 UNIT/0.01 ML (CHARGE PER UNIT) SC SCH (11:00)
[2021-12-01 11:35] VITALS: BP 105/67
[2021-12-01 12:28] VITALS: BP 105/67
== END 2021-12-01 12:28 | disposition home or self-care (01) | DRG 339 ==
LOC: ER FS 08:11 → 4TH 10:21
PROVIDERS: ADMIT Surgery; ATTEND Surgery
PROC: 0W9G30Z Drainage of Peritoneal Cavity with Drainage Device, Percutaneous Approach (ICD-10-PCS; 2021-11-30)
PROC: 0DTJ4ZZ Resection of Appendix, Percutaneous Endoscopic Approach (ICD-10-PCS; principal; 2021-11-30 16:45)
DX: K35.33 Acute appendicitis with perforation, localized peritonitis, and gangrene, with abscess (principal); N12 Tubulo-interstitial nephritis, not specified as acute or chronic; M06.9 Rheumatoid arthritis, unspecified; F17.210 Nicotine dependence, cigarettes, uncomplicated; E11.65 Type 2 diabetes mellitus with hyperglycemia; Z79.899 Other long term (current) drug therapy; K74.60 Unspecified cirrhosis of liver; K75.81 Nonalcoholic steatohepatitis (NASH); K21.9 Gastro-esophageal reflux disease without esophagitis; E03.9 Hypothyroidism, unspecified; F41.9 Anxiety disorder, unspecified; F32.A Depression, unspecified; Z85.41 Personal history of malignant neoplasm of cervix uteri; Z88.2 Allergy status to sulfonamides; Z88.8 Allergy status to other drugs, medicaments and biological substances; Z79.52 Long term (current) use of systemic steroids; Z83.3 Family history of diabetes mellitus
CPT/HCPCS: 36415; 74177; 80053; 81000; 82947; 83605; 83690; 85007; 85027; 87077; 87081; 87088; 87186; Q9967

== ENCOUNTER → 2022-01-19 | Outpatient (CLI) | payer MEDICARE ==
[~2022-01-19] MED LIST changes: +AMOX-355 PO; +ASCO-262 PO; +ATOR20TA66 PO; +CATHETER FLUSH 10 ML SYR IV PRN; +CHOL10004 PO; +CYCL5TAB PO; +DULA0.75 SQ; +FURO40TA4 PO; +GABA800T10 PO; +HOLD METFORMIN - RECEIVED CONTRAST 20 ML VIAL IV SCH; +IOHEXOL 350 MG/ML 100 ML (OMNIPAQUE 350) VIAL IV ONE; +LEVO150T6 PO; +LISI10TA25 PO; +METR-145 PO; +NS 100 ML (IVPB) BAG IV ONE; +OMEP40CA6 PO; +OXYC10TA7 PO; +POTA-51 PO; +SERT-414 PO; +TRAZ-227 PO; +TURM500T PO; +VITA100T8 PO
--- NOTE | 2022-01-19 09:10 | Diagnostic Imaging Report ---
PROCEDURE: CT abdomen and pelvis with contrast. TECHNIQUE: Multiple contiguous axial images were obtained through the abdomen and pelvis after administration of intravenous contrast. Auto Exposure Controls were utilized during the CT exam to meet ALARA standards for radiation dose reduction. All CT scans use one or more of the following dose optimizing techniques: automated exposure control, MA and/or KvP adjustment based on patient size and exam type or iterative reconstruction. INDICATION: History of appendectomy in November. Patient has continued pain at the surgical site with nausea and fevers. Correlation is made with prior CT from 11/30/2021. Lung bases are clear. The liver is unremarkable. Gallbladder is surgically absent. There is no biliary ductal dilatation. Pancreas and spleen are unremarkable. Right adrenal nodule is stable. Left adrenal gland is unremarkable. There is perinephric inflammatory stranding on the left side with some ill-defined heterogeneity in the lower pole of the left kidney. Features are concerning for pyelonephritis. No renal abscess, calculus or hydronephrosis is identified. The right kidney is unremarkable. Aorta and iliac vessels are moderately calcified but nonaneurysmal. Postoperative changes from appendectomy are noted. Patient does have a gas and fluid collection in the low right para midline pelvis measuring 7.2 x 7.3 cm. This does produce some mass effect upon the dome of the urinary bladder. Features are consistent with an abscess. No bowel obstruction is identified. There is no free fluid detected. The uterus appears to be surgically absent. IMPRESSION: 1. Heterogeneous enhancement to the lower pole of the left kidney with perinephric inflammatory stranding, concerning for acute pyelonephritis. No intrarenal or perirenal abscess or evidence of hydronephrosis is identified. Correlation with urinalysis is recommended. 2. Postoperative changes in the right lower quadrant. Patient has developed a gas and fluid containing mass in the low right para midline pelvis, consistent with postoperative abscess. No bowel obstruction is identified. No other significant abnormality is detected. Dictated by: Dictated on workstation # [id number]
== END ==
LOC: RAD FS 07:53
PROVIDERS: ATTEND Nurse Practitioner Family
DX: N12 Tubulo-interstitial nephritis, not specified as acute or chronic (principal); R10.33 Periumbilical pain; G89.18 Other acute postprocedural pain; Z98.890 Other specified postprocedural states; Z87.19 Personal history of other diseases of the digestive system; Z90.89 Acquired absence of other organs
CPT/HCPCS: 74177; Q9967

== ENCOUNTER → 2022-01-25 | Outpatient (CLI) | payer MEDICARE ==
[~2022-01-25] MED LIST changes: -CATHETER FLUSH 10 ML SYR IV PRN; -HOLD METFORMIN - RECEIVED CONTRAST 20 ML VIAL IV SCH; -IOHEXOL 350 MG/ML 100 ML (OMNIPAQUE 350) VIAL IV ONE; -NS 100 ML (IVPB) BAG IV ONE
[2022-01-25 09:13] LABS: BASOPHILS # (AUTO) 0.1 10^3/uL (0.0-0.1); BASOPHILS % (AUTO) 1 % (0-10); EOSINOPHILS # (AUTO) 0.3 10^3/uL (0.0-0.3); EOSINOPHILS % (AUTO) 3 % (0-10); HEMATOCRIT 40 % (35-52); HEMOGLOBIN 13.4 g/dL (11.5-16.0); LYMPHOCYTES # (AUTO) 2.6 10^3/uL (1.0-4.0); LYMPHOCYTES % (AUTO) 30 % (12-44); MEAN CORPUSCULAR HEMOGLOBIN 30 pg (25-34); MEAN CORPUSCULAR HGB CONC 34 g/dL (32-36); MEAN CORPUSCULAR VOLUME 88 fL (80-99); MEAN PLATELET VOLUME 9.5 fL (9.0-12.2); MONOCYTES # (AUTO) 0.4 10^3/uL (0.0-1.0); MONOCYTES % (AUTO) 4 % (0-12); NEUTROPHILS # (AUTO) 5.5 10^3/uL (1.8-7.8); NEUTROPHILS % (AUTO) 62 % (42-75); PLATELET COUNT 237 10^3/uL (130-400); WHITE BLOOD COUNT 8.9 10^3/uL (4.3-11.0)
[2022-01-25 09:16] LABS: BILIRUBIN,URINE NEGATIVE (NEGATIVE); CLARITY,URINE CLEAR; COLOR,URINE YELLOW; GLUCOSE, URINE (UA) NEGATIVE (NEGATIVE); KETONES,URINE NEGATIVE (NEGATIVE); LEUKOCYTE ESTERASE ,URINE NEGATIVE (NEGATIVE); NITRITE,URINE NEGATIVE (NEGATIVE); PH,URINE 6.5 (5-9); PROTEIN,URINE NEGATIVE (NEGATIVE)
[2022-01-25 09:31] LABS: BACTERIA,URINE NEGATIVE /HPF
[2022-01-25 09:38] LABS: BILIRUBIN,TOTAL 0.2 MG/DL (0.1-1.0); CALCIUM 9.6 MG/DL (8.5-10.1); CREATININE SERUM 0.62 MG/DL (0.60-1.30); POTASSIUM 4.5 MMOL/L (3.6-5.0)
[2022-01-25 09:39] LABS: ALBUMIN 3.6 GM/DL (3.2-4.5)
== END ==
LOC: LAB FS 08:42
PROVIDERS: ATTEND Nurse Practitioner Family
DX: R93.5 Abnormal findings on diagnostic imaging of other abdominal regions, including retroperitoneum (principal)
CPT/HCPCS: 36415; 80053; 81000; 83605; 85025

== ENCOUNTER 2022-03-18 14:03 | Outpatient (RCR) | payer MEDICARE | END 2022-04-05 | disposition home or self-care (01) | LOC: LAB 14:03 | PROVIDERS: ATTEND Surgery | DX: K52.9 Noninfective gastroenteritis and colitis, unspecified (principal) | CPT/HCPCS: 87015; 87045; 87046; 87324; 87328; 87329; 87449; 87899 ==

== ENCOUNTER → 2022-04-08 | Outpatient (CLI) | payer MEDICARE | LOC: LAB 11:09 | PROVIDERS: ATTEND Nurse Practitioner | DX: R19.7 Diarrhea, unspecified (principal) ==

== ENCOUNTER → 2022-04-11 | Outpatient (CLI) | payer MEDICARE | LOC: LAB FS 13:20 | PROVIDERS: ATTEND Nurse Practitioner | DX: R19.7 Diarrhea, unspecified (principal) | CPT/HCPCS: 36415 ==

== ENCOUNTER 2022-07-28 22:08 | Emergency (ER) | payer MEDICARE ==
[~2022-07-28] VITALS: Ht 177.8 cm; Wt 94.0 kg
[2022-07-28 22:18] VITALS: BP 150/99
--- NOTE | 2022-07-28 22:19 | ED Lower Extremity ---
General Chief Complaint: Lower Extremity Stated Complaint: FALL,R PINKY TOE PAIN Source: patient Exam Limitations: no limitations History of Present Illness Date Seen by Provider: July 28, 2022 Time Seen by Provider: 22:12 Initial Comments 57-year-old female presents for right little toe pain after she kicked her bed frame. She is out of her oxycodone. Other injuries. All other systems reviewed and negative except documented per HPI. Voice recognition software was used to help create this chart Allergies and Home Medications Allergies Coded Allergies: Sulfa (Sulfonamide Antibiotics) (Verified Allergy, Unknown, 10/16/21) adalimumab (Verified Allergy, Unknown, 09/20/20) etanercept (Unverified Adverse Reaction, Unknown, 09/20/20) methotrexate (Unverified Adverse Reaction, Unknown, 09/20/20) Patient Home Medication List Home Medication List Reviewed: Yes Amoxicillin/Potassium Clav (Augmentin 500-125 Tablet) 500 Mg-125 Mg Tablet, 1 EACH PO TID Prescribed by: CORBY ESCOBAR on 12/01/21 1032 Ascorbate Calcium (Vitamin C) 500 Mg Tablet, 500 MG PO DAILY, (Reported) Entered as Reported by: SHARIF BRAMBILA on 11/30/21 152 Atorvastatin Calcium (Atorvastatin Calcium) 20 Mg Tablet, 20 MG PO HS, (Reported) Entered as Reported by: SHARIF BRAMBILA on 11/30/21 152 Cholecalciferol (Vitamin D3) (Vitamin D3) 25 Mcg (1000 Unit) Tablet, 25 MCG PO DAILY, (Reported) Entered as Reported by: SHARIF BRAMBILA on 11/30/21 152 Cyclobenzaprine HCl (Cyclobenzaprine HCl) 5 Mg Tablet, 5 MG PO TID PRN for MUSCLE SPASMS, (Reported) Entered as Reported by: SHARIF BRAMBILA on 11/30/21 152 Dulaglutide (Trulicity) 0.75 Mg/0.5 Ml Pen.injctr, 0.75 MG SQ SUN, (Reported) Entered as Reported by: SHARIF BRAMBILA on 11/30/21 152 Furosemide (Furosemide) 40 Mg Tablet, 40 MG PO DAILY, (Reported) Entered as Reported by: SHARIF BRAMBILA on 11/30/21 152 Gabapentin (Gabapentin) 800 Mg Tablet, 800 MG PO BID, (Reported) Entered as Reported by: SHARIF BRAMBILA on 11/30/21 152 Gabapentin (Gabapentin) 800 Mg Tablet, 800 MG PO 1200 PRN for PAIN-BREAKTHROUGH, (Reported) Entered as Reported by: SHARIF BRAMBILA on 11/30/21 152 Levothyroxine Sodium (Levothyroxine Sodium) 150 Mcg Tablet, 150 MCG PO DAILY, (Reported) Entered as Reported by: SHARIF BRAMBILA on 11/30/21 152 Lisinopril (Lisinopril) 10 Mg Tablet, 10 MG PO DAILY, (Reported) Entered as Reported by: SHARIF BRAMBILA on 11/30/21 152 Metronidazole (Metronidazole) 500 Mg Tablet, 500 MG PO BID Prescribed by: CORBY ESCOBAR on 12/01/21 103 Omeprazole (Omeprazole) 40 Mg Capsule.dr, 40 MG PO HS, (Reported) Entered as Reported by: SHARIF BRAMBILA on 11/30/21 152 Oxycodone HCl (Oxycodone HCl) 10 Mg Tablet, 10 MG PO BID, (Reported) Entered as Reported by: SHARIF BRAMBILA on 11/30/21 152 Potassium Chloride (Potassium Chloride) 20 Meq Tablet.er, 20 MEQ PO DAILY, (Reported) Entered as Reported by: SHARIF BRAMBILA on 11/30/21 152 Sertraline HCl (Sertraline HCl) 100 Mg Tablet, 100 MG PO HS, (Reported) Entered as Reported by: SHARIF BRAMBILA on 11/30/21 152 Trazodone HCl (Trazodone HCl) 100 Mg Tablet, 100 MG PO HS, (Reported) Entered as Reported by: SHARIF BRAMBILA on 11/30/211522 Turmeric Root Extract (Turmeric) 500 Mg Tablet, 500 MG PO DAILY, (Reported) Entered as Reported by: SHARIF BRAMBILA on 11/30/211522 Vitamin E Mixed (Vitamin E) 100 Unit Tablet, 2 UNIT PO DAILY, (Reported) Entered as Reported by: SHARIF BRAMBILA on 11/30/211522 Review of Systems Constitutional: see HPI Past Wirclwe-Htrwgd-Xlpfxm Hx Patient Social History Tobacco Use?: No Use of E-Cig and/or Vaping dev: No Substance use?: No Alcohol Use?: No Immunizations Up To Date First/Initial COVID19 Vaccinat: 05/19/20 Second COVID19 Vaccination Edin: 06/16/20 Third COVID19 Vaccination Date: 05/19/20 Past Medical History Surgery/Hospitalization HX: RA, 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, DM II Surgeries: Yes Section, Eye Surgery, Gallbladder, Hysterectomy, Orthopedic Respiratory: No Currently Using CPAP: No Currently Using BIPAP: No Cardiac: No Neurological: No Genitourinary: Yes (UTI one month ago, same time as she passed kidney stone) Kidney Stones Gastrointestinal: Yes (GOFF) Gastroesophageal Reflux Musculoskeletal: Yes Rheumatoid Arthritis Endocrine: Yes Diabetes, Insulin dep, Hypothyroidsim HEENT: Yes Cataract Cancer: Yes Cervical Psychosocial: Yes Anxiety, Depression Integumentary: No Family Medical History Cancer, Diabetes, Hypertension, Stroke, Other Conditions/Hx Physical Exam Vital Signs Vital Signs - First Documented 07/28/22 22:18 Temp 35.4 Pulse 75 Resp 18 B/P (MAP) 150/99 (116) Capillary Refill : Height, Weight, BMI Height: '" Weight: lbs. oz. kg; 29.98 BMI Method: General Appearance: WD/WN, no apparent distress Cardiovascular: regular rate, rhythm, no murmur Respiratory: chest non-tender, lungs clear, normal breath sounds Hips: bilateral hip non-tender, bilateral hip normal inspection, bilateral hip normal range of motion Legs: bilateral leg non-tender, bilateral leg normal inspection, bilateral leg normal range of motion Knees: bilateral knee non-tender, bilateral knee normal inspection, bilateral knee normal range of motion Ankles: bilateral ankle non-tender, bilateral ankle normal inspection, evan ateral ankle normal range of motion Feet: right foot other (Small superficial laceration to the flexor crease beneath the little toe on the right side. There are some bony tenderness. No swelling. No deformity. Neurovascular motor and sensory intact.) Skin: normal color Progress/Results/Core Measures Results/Orders My Orders Orders - SHELIA GRUBBS DO Foot 3 View Right (07/28/22 22:13) Vital Signs/I&O 07/28/22 22:18 Temp 35.4 Pulse 75 Resp 18 B/P (MAP) 150/99 (116) Departure Communication (PCP) Patient is hemodynamically stable. She is a small cut in the crease beneath her toe, superficial with no tenderness involvement. It is hemostatic. No bony injury. X-rays negative on my independent review. Supportive care. Impression Primary Impression: Contusion of fifth toe, right Qualified Codes: S90.121A - Contusion of right lesser toe(s) without damage to nail, initial encounter Disposition: 01 HOME, SELF-CARE Condition: Stable Departure-Patient Inst. Referrals: JOSIE BAKER APRN (PCP) Primary Care Physician [facility] (Family) Primary Care Physician Patient Instructions: Toe Injury (DC) Add. Discharge Instructions: Keep the wound clean. There are no fractures on the x-ray. Use ibuprofen and Tylenol as needed for pain. Return to the emergency department for any severe concerns. bear weight as tolerated All discharge instructions reviewed with patient and/or family. Voiced understanding. SHELIA GRUBBS DO July 28, 2022 22:19
--- NOTE | 2022-07-29 07:48 | Diagnostic Imaging Report ---
INDICATION: Foot injury, pain. TECHNIQUE: 3 views of the right foot CORRELATION STUDY: None FINDINGS: Transversely oriented but relatively nondisplaced fracture involving the 4th and 5th proximal phalanges are present. The remaining osseous structures otherwise intact and unremarkable. Joint spaces maintained. No soft tissue foreign body. IMPRESSION: 1. Nondisplaced transversely oriented fractures involving the 4th and 5th proximal phalanges. Dictated by: Dictated on workstation # [id number]
== END 2022-07-28 22:46 | disposition home or self-care (01) ==
LOC: EDUNIT# 22:08 → ER FS 22:09
DX: S91.114A Laceration without foreign body of right lesser toe(s) without damage to nail, initial encounter (principal); E11.9 Type 2 diabetes mellitus without complications; Z79.4 Long term (current) use of insulin; W26.8XXA Contact with other sharp object(s), not elsewhere classified, initial encounter; W19.XXXA Unspecified fall, initial encounter
CPT/HCPCS: 73630

== ENCOUNTER 2022-10-19 20:12 | Emergency (ER) | payer MEDICARE ==
[~2022-10-19] VITALS: Ht 177 cm; Wt 88.9 kg
[~2022-10-19 20:12] MED LIST changes: +POTA-330 PO; -POTA-51 PO
[2022-10-19 20:26] VITALS: BP 125/63
[2022-10-19] MEDS ORDERED: predniSONE 20 MG TAB PO STA (21:20)
[2022-10-19] MEDS ORDERED: CEPHALEXIN 250 MG CAPSULE PO STA (21:21)
--- NOTE | 2022-10-19 21:28 | ED General ---
General Chief Complaint: Bite-Animal/Human/Insect Stated Complaint: R ARM STING,ARM SWELLING Nursing Triage Note: Patient ambulatory to room 4 c/o bee sting to right wrist yesterday AM. Patient states it's "itchy" and swollen up to bicep today. took benedryl at 1400 today. denies difficulty breathing or swallowing at this x. Source of Information: Patient, Family, Old Records Exam Limitations: No Limitations History of Present Illness Date Seen by Provider: Oct 19, 2022 Time Seen by Provider: 20:41 Initial Comments This 57-year-old woman presents to the emergency room with concerns about right hand and arm swelling and erythema after being stung by a wasp yesterday. She initially also had some throat tightness yesterday which improved with Benadryl. She continued to take Benadryl today without significant improvement. Erythema, swelling, and pain has now extended to the mid upper arm. She denies fever. No throat or airway symptoms at present. Affected areas are pruritic. Allergies and Home Medications Allergies Coded Allergies: Sulfa (Sulfonamide Antibiotics) (Verified Allergy, Unknown, 10/16/21) adalimumab (Verified Allergy, Unknown, 09/20/20) etanercept (Unverified Adverse Reaction, Unknown, 09/20/20) methotrexate (Unverified Adverse Reaction, Unknown, 09/20/20) Patient Home Medication List Home Medication List Reviewed: Yes Amoxicillin/Potassium Clav (Augmentin 500-125 Tablet) 500 Mg-125 Mg Tablet, 1 EACH PO TID Prescribed by: CORBY ESCOBAR on 12/01/21 1032 Ascorbate Calcium (Vitamin C) 500 Mg Tablet, 500 MG PO DAILY, (Reported) Entered as Reported by: SHARIF BRAMBILA on 11/30/21 1523 Atorvastatin Calcium (Atorvastatin Calcium) 20 Mg Tablet, 20 MG PO HS, (Reported) Entered as Reported by: SHARIF BRAMBILA on 11/30/21 1523 Cephalexin (Cephalexin) 500 Mg Tablet, 500 MG PO QID Prescribed by: YASMIN REAL on 10/19/222128 Cholecalciferol (Vitamin D3) (Vitamin D3) 25 Mcg (1000 Unit) Tablet, 25 MCG PO DAILY, (Reported) Entered as Reported by: SHARIF BRAMBILA on 11/30/21 1523 Cyclobenzaprine HCl (Cyclobenzaprine HCl) 5 Mg Tablet, 5 MG PO TID PRN for MUSCLE SPASMS, (Reported) Entered as Reported by: SHARIF BRAMBILA on 11/30/211522 Dulaglutide (Trulicity) 0.75 Mg/0.5 Ml Pen.injctr, 0.75 MG SQ SUN, (Reported) Entered as Reported by: SHARIF BRAMBILA on 11/30/21 152 Furosemide (Furosemide) 40 Mg Tablet, 40 MG PO DAILY, (Reported) Entered as Reported by: SHARIF BRAMBILA on 11/30/211522 Gabapentin (Gabapentin) 800 Mg Tablet, 800 MG PO BID, (Reported) Entered as Reported by: SHARIF BRAMBILA on 11/30/211522 Gabapentin (Gabapentin) 800 Mg Tablet, 800 MG PO 1200 PRN for PAIN-BREAKTHROUGH, (Reported) Entered as Reported by: SHARIF BRAMBILA on 11/30/211522 Levothyroxine Sodium (Levothyroxine Sodium) 150 Mcg Tablet, 150 MCG PO DAILY, (Reported) Entered as Reported by: SHARIF BRAMBILA on 11/30/211522 Lisinopril (Lisinopril) 10 Mg Tablet, 10 MG PO DAILY, (Reported) Entered as Reported by: SHARIF BRAMBILA on 11/30/211522 Metronidazole (Metronidazole) 500 Mg Tablet, 500 MG PO BID Prescribed by: CORBY ESCOBAR on 12/01/21 103 Omeprazole (Omeprazole) 40 Mg Capsule.dr, 40 MG PO HS, (Reported) Entered as Reported by: SHARIF BRAMBILA on 11/30/211522 Oxycodone HCl (Oxycodone HCl) 10 Mg Tablet, 10 MG PO BID, (Reported) Entered as Reported by: SHARIF BRAMBILA on 11/30/211522 Potassium Chloride (Potassium Chloride) 20 Meq Tablet.er, 20 MEQ PO DAILY, (Re ported) Entered as Reported by: SHARIF BRAMBILA on 11/30/211522 Prednisone (Prednisone) 20 Mg Tab, 20 MG PO DAILY Prescribed by: YASMIN REAL on 10/19/222128 Sertraline HCl (Sertraline HCl) 100 Mg Tablet, 100 MG PO HS, (Reported) Entered as Reported by: SHARIF BRAMBILA on 11/30/211522 Trazodone HCl (Trazodone HCl) 100 Mg Tablet, 100 MG PO HS, (Reported) Entered as Reported by: SHARIF BRAMBILA on 11/30/21 152 Turmeric Root Extract (Turmeric) 500 Mg Tablet, 500 MG PO DAILY, (Reported) Entered as Reported by: SHARIF BRAMBILA on 11/30/211522 Vitamin E Mixed (Vitamin E) 100 Unit Tablet, 2 UNIT PO DAILY, (Reported) Entered as Reported by: SHARIF BRAMBILA on 11/30/211522 Review of Systems Review of Systems Constitutional: no symptoms reported EENTM: no symptoms reported Respiratory: no symptoms reported Cardiovascular: no symptoms reported Gastrointestinal: no symptoms reported Genitourinary: no symptoms reported : No Musculoskeletal: see HPI Skin: see HPI Psychiatric/Neurological: No Symptoms Reported Hematologic/Lymphatic: No Symptoms Reported Immunological/Allergic: see HPI Past Xxtalal-Bihzcp-Slmckk Hx Patient Social History Tobacco Use?: Yes Tobacco type used: Cigarettes Smoking Status: Current Everyday Smoker Substance use?: No Alcohol Use?: No Immunizations Up To Date First/Initial COVID19 Vaccinat: 05/19/20 Second COVID19 Vaccination Edin: 06/16/20 Third COVID19 Vaccination Date: 05/19/20 COVID19 Vaccine Volleyball Referee: Moderna Past Medical History Surgery/Hospitalization HX: RA, 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, DM II Surgeries: Yes (hernia repair) Appendectomy, Section, Eye Surgery, Gallbladder, Hysterectomy, Orthopedic Respiratory: No Currently Using CPAP: No Currently Using BIPAP: No Cardiac: No Neurological: No : No Genitourinary: Yes (history UTI) Kidney Stones Gastrointestinal: Yes (GOFF) Gastroesophageal Reflux, Liver Disease/Jaundice Musculoskeletal: Yes Fibromyalgia, Rheumatoid Arthritis Endocrine: Yes Diabetes, Insulin dep, Hypothyroidsim HEENT: Yes Cataract Cancer: Yes Cervical Psychosocial: Yes Anxiety, Depression Integumentary: No Family Medical History Cancer, Diabetes, Hypertension, Stroke, Other Conditions/Hx Physical Exam Vital Signs Vital Signs - First Documented 10/19/22 20:26 Temp 36.6 Pulse 66 Resp 18 B/P (MAP) 125/63 (83) Pulse Ox 96 O2 Delivery Room Air Capillary Refill : Less Than 3 Seconds Height, Weight, BMI Height: '" Weight: lbs. oz. kg; 28.00 BMI Method: General Appearance: No Apparent Distress, WD/WN HEENT: Normal ENT Inspection, Pharynx Normal Respiratory: Lungs Clear, Normal Breath Sounds, No Accessory Muscle Use Cardiovascular: Regular Rate, Rhythm, No Edema, No Murmur Extremity: Other (warmth, erythema, swelling and TTP of the RUE from hand to mid upper arm. Opal radial pulse, ROM and sensation.) Neurologic/Psychiatric: Alert, Oriented x3, No Motor/Sensory Deficits, Normal Mood/Affect Skin: Warm/Dry, Erythema Progress/Results/Core Measures Suspected Sepsis SIRS Temperature: Pulse: 66 Respiratory Rate: 18 Blood Pressure 125 /63 Mean: 83 Results/Orders My Orders Orders - YASMIN BANERJEE MD Prednisone Tablet (Deltasone Tablet) (10/19/22 21:20) Cephalexin Capsule (Cephalexin Capsule) (10/19/22 21:21) Vital Signs/I&O 10/19/22 20:26 Temp 36.6 Pulse 66 Resp 18 B/P (MAP) 125/63 (83) Pulse Ox 96 O2 Delivery Room Air Capillary Refill : Less Than 3 Seconds Blood Pressure Mean: 83 Progress Note : Time: 21:22 Progress Note Report received from triage nurse at 2040. Patient was stable at that time. Patient was interviewed and examined at 2104. Patient was stable. Doses of Keflex and Prednisone provided along with Rx. See discharge instructions. Patient was advised medication may no improve her condition if she was experiencing inflammation from venomous toxin effect. Departure Impression Primary Impression: Wasp sting Qualified Codes: T63.461A - Toxic effect of venom of wasps, accidental (unintentional), initial encounter Additional Impressions: Swelling of right upper extremity Pruritus Disposition: 01 HOME, SELF-CARE Condition: Stable Departure-Patient Inst. Decision time for Depature: 21:15 Referrals: LEISA MO APRN (PCP/Family) Primary Care Physician Patient Instructions: Insect bites and stings Add. Discharge Instructions: Continue taking prednisone until the swelling resolves. You do not need to finish all doses if the swelling resolves promptly. Monitor your blood sugars closely while taking prednisone, preferably fasting in the morning and 2 hours after each meal. Use insulin to correct high blood sugars. Consult you are primary care provider or auto club travel counselor for direction on insulin usage if needed. Take prednisone early in the day to avoid sleep disturbance and take with food or milk to avoid stomach upset. Eat a low sugar, low carbohydrate diet while on prednisone to help avoid elevations in blood sugar. You may use nondrowsy antihistamine such as Claritin (loratadine), Zyrtec (cetirizine), Pepcid (famotidine), etc. for itch relief. You may use Benadryl (diphenhydramine) up to 50 mg every 4 hours as needed when the drowsiness effect of Benadryl can be tolerated. Complete your antibiotics as prescribed. Elevate your arm to the level of your heart is much as possible. When elevating, be sure that your hand and elbow are level with your shoulder or h igher. Return to care if you have worsening symptoms despite following these instructions or if you develop new symptoms such as fever. All discharge instructions reviewed with patient and/or family. Voiced understanding. Scripts Cephalexin (Cephalexin) 500 Mg Tablet 500 MG PO QID, #28 TAB Prov: YASMIN BANERJEE MD 10/19/22 Prednisone (Prednisone) 20 Mg Tab 20 MG PO DAILY, #3 TAB 0 Refills Prov: YASMIN BANERJEE MD 10/19/22 Copy Copies To 1: [facility]/YASMIN OSULLIVAN MD Oct 19, 2022 21:28
[2022-10-19] MEDS ORDERED: PRD20T PO (21:29)
[2022-10-19] MEDS ORDERED: CEPH500T PO (21:29)
== END 2022-10-19 21:30 | disposition home or self-care (01) ==
LOC: EDUNIT# 20:12 → ER FS 20:13
DX: T63.461A Toxic effect of venom of wasps, accidental (unintentional), initial encounter (principal); L29.9 Pruritus, unspecified; E11.9 Type 2 diabetes mellitus without complications; F17.210 Nicotine dependence, cigarettes, uncomplicated; Z79.4 Long term (current) use of insulin; Z88.2 Allergy status to sulfonamides
CPT/HCPCS: 99283

== ENCOUNTER 2022-11-11 20:50 | Emergency (ER) | payer MEDICARE ==
[~2022-11-11] VITALS: Ht 177.8 cm; Wt 94.0 kg
[~2022-11-11 20:50] MED LIST changes: +CEPH500T PO; +PRD20T PO
[2022-11-11 20:51] VITALS: BP 194/74
--- NOTE | 2022-11-11 21:00 | ED Cough/URI ---
General Stated Complaint: THINKS SHE HAS COVID,COUGH,SOA,FEVER FOR A WEEK Source: patient Exam Limitations: no limitations History of Present Illness Date Seen by Provider: Nov 11, 2022 Time Seen by Provider: 20:52 Initial Comments 57 yo F here for cough, URI, sinus pressure. Symptoms x1 week. Has a daughter at home that had similar symptoms for 2 weeks prior to onset of her illness. No fevers/chills. No CP. She does have diabetes, RA, and 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. All other systems reviewed and negative except documented per HPI. Voice recognition software was used to help create this chart Allergies and Home Medications Allergies Coded Allergies: Sulfa (Sulfonamide Antibiotics) (Verified Allergy, Unknown, 10/16/21) adalimumab (Verified Allergy, Unknown, 09/20/20) etanercept (Unverified Adverse Reaction, Unknown, 09/20/20) methotrexate (Unverified Adverse Reaction, Unknown, 09/20/20) Uncoded Allergies: "all biologics" (Allergy, Unknown, 10/21/22) Patient Home Medication List Home Medication List Reviewed: Yes Amoxicillin/Potassium Clav (Augmentin 500-125 Tablet) 500 Mg-125 Mg Tablet, 1 EACH PO TID Prescribed by: CORBY ESCOBAR on 12/01/21 1032 Ascorbate Calcium (Vitamin C) 500 Mg Tablet, 500 MG PO DAILY, (Reported) Entered as Reported by: SHARIF BRAMBILA on 11/30/21 152 Atorvastatin Calcium (Atorvastatin Calcium) 20 Mg Tablet, 20 MG PO HS, (Reported) Entered as Reported by: SHARIF BRAMBILA on 11/30/21 152 Cephalexin (Cephalexin) 500 Mg Tablet, 500 MG PO QID Prescribed by: YASMIN REAL on 10/19/222128 Cholecalciferol (Vitamin D3) (Vitamin D3) 25 Mcg (1000 Unit) Tablet, 25 MCG PO DAILY, (Reported) Entered as Reported by: SHARIF BRAMBILA on 11/30/21 152 Cyclobenzaprine HCl (Cyclobenzaprine HCl) 5 Mg Tablet, 5 MG PO TID PRN for MUSCLE SPASMS, (Reported) Entered as Reported by: SHARIF BRAMBILA on 11/30/21 152 Dulaglutide (Trulicity) 0.75 Mg/0.5 Ml Pen.injctr, 0.75 MG SQ SUN, (Reported) Entered as Reported by: SHARIF BRAMBILA on 11/30/21 152 Furosemide (Furosemide) 40 Mg Tablet, 40 MG PO DAILY, (Reported) Entered as Reported by: SHAIRF BRAMBILA on 11/30/211522 Gabapentin (Gabapentin) 800 Mg Tablet, 800 MG PO BID, (Reported) Entered as Reported by: SHARIF BRAMBILA on 11/30/211522 Gabapentin (Gabapentin) 800 Mg Tablet, 800 MG PO 1200 PRN for PAIN-BREAKTHROUGH, (Reported) Entered as Reported by: SHARIF BRAMBILA on 11/30/211522 Levothyroxine Sodium (Levothyroxine Sodium) 150 Mcg Tablet, 150 MCG PO DAILY, (Reported) Entered as Reported by: SHARIF BRAMBILA on 11/30/211522 Lisinopril (Lisinopril) 10 Mg Tablet, 10 MG PO DAILY, (Reported) Entered as Reported by: SHARIF BRAMBILA on 11/30/211522 Metronidazole (Metronidazole) 500 Mg Tablet, 500 MG PO BID Prescribed by: CORBY ESCOBAR on 12/01/21 103 Omeprazole (Omeprazole) 40 Mg Capsule.dr, 40 MG PO HS, (Reported) Entered as Reported by: SHARIF BRAMBILA on 11/30/211522 Oxycodone HCl (Oxycodone HCl) 10 Mg Tablet, 10 MG PO BID, (Reported) Entered as Reported by: SHARIF BRAMBILA on 11/30/211522 Potassium Chloride (Potassium Chloride) 20 Meq Tablet.er, 20 MEQ PO DAILY, (Reported) Entered as Reported by: SHARIF BRAMBILA on 11/30/211522 Prednisone (Prednisone) 20 Mg Tab, 20 MG PO DAILY Prescribed by: YASMIN REAL on 10/19/222128 Sertraline HCl (Sertraline HCl) 100 Mg Tablet, 100 MG PO HS, (Reported) Entered as Reported by: SHARIF BRAMBILA on 11/30/211522 Trazodone HCl (Trazodone HCl) 100 Mg Tablet, 100 MG PO HS, (Reported) Entered as Reported by: SHARIF BRAMBILA on 11/30/21 152 Turmeric Root Extract (Turmeric) 500 Mg Tablet, 500 MG PO DAILY, (Reported) Entered as Reported by: SHARIF BRAMBILA on 11/30/211522 Vitamin E Mixed (Vitamin E) 100 Unit Tablet, 2 UNIT PO DAILY, (Reported) Entered as Reported by: SHARIF BRAMBILA on 11/30/211522 Review of Systems Review of Systems Constitutional: see HPI Past Oacqyqy-Cjufxo-Mdpgrp Hx Patient Social History Tobacco Use?: No Use of E-Cig and/or Vaping dev: No Substance use?: No Alcohol Use?: No Immunizations Up To Date First/Initial COVID19 Vaccinat: 05/19/20 Second COVID19 Vaccination Edin: 06/16/20 Third COVID19 Vaccination Date: 05/19/20 Past Medical History Surgery/Hospitalization HX: RA, 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, DM II Surgeries: Yes (hernia repair) Appendectomy, Section, Eye Surgery, Gallbladder, Hysterectomy, Orthopedic Respiratory: No Currently Using CPAP: No Currently Using BIPAP: No Cardiac: No Neurological: No Genitourinary: Yes (history UTI) Kidney Stones Gastrointestinal: Yes (GOFF) Gastroesophageal Reflux, Liver Disease/Jaundice Musculoskeletal: Yes Fibromyalgia, Rheumatoid Arthritis Endocrine: Yes Diabetes, Insulin dep, Hypothyroidsim HEENT: Yes Cataract Cancer: Yes Cervical Psychosocial: Yes Anxiety, Depression Integumentary: No Family Medical History Cancer, Diabetes, Hypertension, Stroke, Other Conditions/Hx Physical Exam Vital Signs - First Documented 11/11/22 20:51 Temp 36.4 Pulse 68 Resp 20 B/P (MAP) 194/74 (114) Pulse Ox 100 Capillary Refill : Height: '" Weight: lbs. oz. kg; 28.00 BMI Method: General Appearance: WD/WN, no apparent distress Eyes: Bilateral Eye Normal Inspection, Bilateral Eye PERRL, Bilateral Eye EOMI HEENT: normal ENT inspection, TMs normal, pharynx normal Neck: non-tender, supple Respiratory: chest non-tender, no respiratory distress, other (Slight inspiratory next very wheezing bilaterally.) Cardiovascular: regular rate, rhythm, no murmur Gastrointestinal: normal bowel sounds, non tender, soft Neurologic/Psychiatric: alert, oriented x 3 Skin: normal color, warm/dry Progress/Results/Core Measures Suspected Sepsis SIRS Temperature: Pulse: Respiratory Rate: Blood Pressure / Mean: Results/Orders Lab Results Laboratory Tests Test 11/11/22 20:55 Range/Units SARS-CoV-2 RNA (RT-PCR) Not Detected Not Detecte My Orders Orders - SHELIA GRUBBS DO Covid 19 Inhouse Test (11/11/22 20:51) Chest 1 View Ap/Pa Only (11/11/22 20:57) Vital Signs/I&O 11/11/22 20:51 Temp 36.4 Pulse 68 Resp 20 B/P (MAP) 194/74 (114) Pulse Ox 100 Capillary Refill : Departure Communication (Admissions) Patient is hemodynamically stable. She has slight expiratory wheezes bilaterally which she and her state is completely normal for her. COVID test is negative here. Oxygen is between 90 to 100% on room air with no respiratory distress. She does have a dry cough. Will prescribe her Tessalon Perles. Chest x-ray on my independent review shows no acute cardiopulmonary abnormalities. No evidence for focal source of infection that would require antibiotics. She is discharged in stable condition Impression Primary Impression: Viral URI with cough Disposition: HOME, SELF-CARE Condition: Stable Departure-Patient Inst. Referrals: LEISA MO APRN (PCP/Family) Primary Care Physician Patient Instructions: Upper Respiratory Infection ED Add. Discharge Instructions: You are seen in the emergency department today for cough. Your COVID test is negative. Your chest x-ray does not show any pneumonia. This is likely a viral upper respiratory infection. I recommend you take the Tessalon Perles as needed for cough. Increase your fluids and rest. This will likely resolve on its own in the next 3 days.. Return to the emergency department for any severe concerns. Follow-up with your primary doctor for any nonemergent needs. Scripts Benzonatate (TESSALON PERLES) 100 Mg Capsule 100 MG PO Q6H for Cough for 3 Days, #12 CAP Prov: SHELIA GRUBBS DO 11/11/22 SHELIA GRUBBS DO Nov 11, 2022 21:00
[2022-11-11] MEDS ORDERED: BENZ100C18 PO (21:28)
--- NOTE | 2022-11-11 21:34 | Diagnostic Imaging Report ---
INDICATION: Productive cough. EXAMINATION: Frontal chest was obtained at 9:17 p.m. COMPARISON: 10/05/2021. FINDINGS: Heart and mediastinal silhouette are normal in appearance. The lungs are clear. There is no pneumothorax or pleural fluid. IMPRESSION: Negative chest. Dictated by: Dictated on workstation # [id number]
== END 2022-11-11 21:31 | disposition home or self-care (01) ==
LOC: EDUNIT# 20:50 → ER FS 20:52
DX: J06.9 Acute upper respiratory infection, unspecified (principal); E11.9 Type 2 diabetes mellitus without complications; Z20.822 Contact with and (suspected) exposure to COVID-19; Z79.4 Long term (current) use of insulin
CPT/HCPCS: 71045; 87636